=== PATIENT | male | born 1975 | race Caucasian/White ===

== ENCOUNTER 2017-07-26 15:41 | Inpatient (IN) | payer BC ==
[2017-07-26 19:22] VITALS: BMI 30.4
--- NOTE | 2017-07-26 19:30 | HP ---
CIWA Score - CIWA Score Nausea/Vomitin Muscle Tremors: 3 Anxiety: 2 Agitation: 1-Slight > Activity Paroxysmal Sweats: 2 Orientation: 1-Uncertain about Date Tacttile Disturbances: 0-None Auditory Disturbances: 0-None Visual Disturbances: 0-None Headache: 2-Mild CIWA-Ar Total Score: 13 Admission [facility] Chief Complaint: WITHDRAWAL SYMPTOMS Allergies/Adverse Reactions: Allergies Allergy/AdvReac Type Severity Reaction Status Date / Time No Known Allergies Allergy Verified 07/26/17 19:24 History of Present Illness: 42 Y.O. MAN WITH AN EXTENSIVE HISTORY OF ALCOHOL DEPENDENCE IS HERE SEEKING HIS FIRST ADMISSION TO DETOX. LONGEST PERIOD SOBER HAS BEEN 2 YEARS AND STATES HE RELAPSED ONE MONTH AGO. Exam Limitations: No Limitations - Ebola screening Have you traveled outside of the country in the last 21 days: No Have you had contact with anyone from an Ebola affected area: No Have you been sick,other than usual withdrawal symptoms: No - Review of Systems Constitutional: Chills, Night Sweats EENT: reports: No Symptoms Reported Respiratory: reports: No Symptoms reported Cardiac: reports: Palpitations GI: reports: No Symptoms Reported : reports: No Symptoms Reported Musculoskeletal: reports: No Symptoms Reported Integumentary: reports: No Symptoms Reported Neuro: reports: Tremors Endocrine: reports: No Symptoms Reported Hematology: reports: No Symptoms Reported Psychiatric: reports: Anxious, Depressed Other Systems: Reviewed and Negative Patient History - Patient Medical History Hx Anemia: No Hx Asthma: No Hx Chronic Obstructive Pulmonary Disease (COPD): No Hx Cancer: No Hx Cardiac Disorders: No Hx Congestive Heart Failure: No Hx Hypertension: No Hx Hypercholesterolemia: No Hx Pacemaker: No HX Cerebrovascular Accident: No Hx Seizures: No Hx Dementia: No Hx Diabetes: No Hx Gastrointestinal Disorders: No Hx Liver Disease: No Hx Genitourinary Disorders: No Hx Sexually Transmitted Disorders: No Hx Renal Disease (ESRD): No Hx Thyroid Disease: No Hx Human Immunodeficiency Virus (HIV): No Hx Hepatitis C: No Hx Depression: Yes (AND ANXIETY ) Hx Suicide Attempt: No Hx Bipolar Disorder: No Hx Schizophrenia: No - Patient Surgical History Past Surgical History: No - PPD History Previous Implant?: Yes Documented Results: Negative w/o proof PPD to be Administered?: Yes - Reproductive History Patient is a Female of Child Bearing Age (11 -55 yrs old): No - Smoking Cessation Smoking history: Former smoker Have you smoked in the past 12 months: No Initiated information on smoking cessation: No - Substance & Tx. History Hx Alcohol Use: Yes Hx Substance Use: No Substance Use Type: Alcohol Hx Substance Use Treatment: No - Substances Abused Alcohol Route: Oral Frequency: Daily Amount used: 2 6-PACKS OF BEER Age of first use: 16 Date of Last Use: 07/26/17 Family Disease History - Family Disease History Family History: Unremarkable Admission Physical Exam [facility] - Vital Signs Vital Signs: Vital Signs - 24 hr 07/26/17 19:17 Temperature 97.5 F L Pulse Rate 91 H Respiratory 18 Rate Blood Pressure 142/84 - Physical General Appearance: Yes: Sweating, Anxious HEENTM: Yes: Hearing grossly Normal, Normocephalic, Normal Voice Respiratory: Yes: Chest Non-Tender, Lungs Clear, Normal Breath Sounds, No Respiratory Distress, No Accessory Muscle Use Neck: Yes: No masses,lesions,Nodules, Trachea in good position Breast: Yes: Breast Exam Deferred Cardiology: Yes: Regular Rhythm, Regular Rate Abdominal: Yes: Normal Bowel Sounds, Non Tender, Flat Genitourinary: Yes: Other Back: Yes: Normal Inspection Musculoskeletal: Yes: full range of Motion, Gait Steady Extremities: Yes: Normal Capillary Refill, Normal Inspection, Normal Range of Motion, Non-Tender Neurological: Yes: Alert, Motor Strength 5/5, Normal Mood/Affect, Normal Response Integumentary: Yes: Normal Color, Dry, Warm Lymphatic: Yes: Within Normal Limits - Diagnostic (1) Alcohol dependence with uncomplicated withdrawal Current Visit: Yes Status: Acute Cleared for Admission [facility] - Detox or Rehab [facility] Level of Care: Medically Managed Detox Regimen/Protocol: Librium [facility] Breath Alcohol Content Breath Alcohol Content: 0.188 Urine Drug Screen - Results Drug Screen Negative: Yes
[2017-07-26] MEDS ORDERED: ACETAMINOPHEN 325 MG TABLET (FP) PO PRN (19:42)
[2017-07-26] MEDS ORDERED: MAG HYDROX/AL HYDROX/SIMETH 30 ML UNIT-DOSE CUP PO PRN (19:42)
[2017-07-26] MEDS ORDERED: MAGNESIUM HYDROX 2400MG/30ML ORAL SUSPENSION 30 ML CUP PO PRN (19:42)
[2017-07-26] MEDS ORDERED: IBUPROFEN 400 MG TABLET (FP) PO PRN (19:42)
[2017-07-26] MEDS ORDERED: MAGNESIUM CITRATE 300 ML BOTTLE PO PRN (19:42)
[2017-07-26] MEDS ORDERED: MENTHOL/PHENOL 1 EACH UD MM PRN (19:42)
[2017-07-26] MEDS ORDERED: P-EPHED 60MG/TRIPROLIDI 2.5MG TABLET PO PRN (19:42)
[2017-07-26] MEDS ORDERED: chlordiazePOXIDE HCL 25 MG CAPSULE PO PRN (19:42)
[2017-07-26] MEDS ORDERED: LOPERAMIDE HCL 2 MG CAPSULE PO PRN (19:42)
[2017-07-26] MEDS ORDERED: guaiFENesin/D-METHORPHAN HB 10 ML UNIT-DOSE CUPS PO PRN (19:42)
[2017-07-26] MEDS: THIAMINE HCL 100 MG TABLET (FP) PO SCH (21:19)
[2017-07-26] MEDS ORDERED: MELATONIN 5 MG TABLETS PO PRN (22:00)
[2017-07-26] MEDS: chlordiazePOXIDE HCL 25 MG CAPSULE PO SCH (22:10)
[2017-07-27] MEDS: hydrOXYzine PAMOATE 50 MG CAPSULE (FP) PO PRN (02:34)
[2017-07-27] MEDS: chlordiazePOXIDE HCL 25 MG CAPSULE PO SCH ×4 (05:38→22:46)
[2017-07-27] MEDS: PRENATAL VITAMINS W/ FOLIC ACID TABLET (FP) PO SCH (10:13)
[2017-07-27 10:16] LABS: HEMATOCRIT 42.6 % (35.4-49); HEMOGLOBIN 14.9 GM/dL (11.7-16.9); MCH 33.3 pg (25.7-33.7); MEAN CELL VOLUME 95.2 fl (80-96); MEAN PLT VOLUME 7.7 fl (7.5-11.1); PLATELET COUNT 185 K/MM3 (134-434); RBC 4.47 M/mm3 (4.00-5.60); RDW 16.2 % (11.9-15.9); WHITE BLOOD COUNT 5.2 K/mm3 (4.0-10.0)
[2017-07-27 10:27] LABS: ALBUMIN 4.7 g/dl (3.4-5.0); ANION GAP 10 (8-16); BLOOD UREA NITROGEN 10 mg/dL (7-18); CALCIUM 8.9 mg/dL (8.5-10.1); CHLORIDE 102 mmol/L (98-107); CO2 29 mmol/L (21-32); CREATININE 0.8 mg/dL (0.7-1.3); GLUCOSE,RANDOM 134 mg/dL (74-106); POTASSIUM 3.2 mmol/L (3.5-5.1); SGOT/AST 63 U/L (15-37); SGPT/ALT 44 U/L (12-78); SODIUM 141 mmol/L (136-145); TOT PROT 7.8 g/dl (6.4-8.2)
[2017-07-27 10:28] LABS: ALK PHOS 71 U/L (45-117)
[2017-07-27 10:52] LABS: URINE APPEARANCE CLEAR; URINE BILIRUBIN NEGATIVE (<2.0 mg/dL); URINE BLOOD NEGATIVE (NEGATIVE); URINE COLOR LTYELLOW; URINE GLUCOSE (UA) NEGATIVE (NEGATIVE); URINE KETONE NEGATIVE (NEGATIVE); URINE LEUK ESTERASE NEGATIVE (NEGATIVE); URINE NITRITE NEGATIVE (NEGATIVE); URINE PROTEIN NEGATIVE (NEGATIVE); URINE UROBILINOGEN NEGATIVE mg/dL (0.2-1.0)
--- NOTE | 2017-07-27 11:35 | EKG ---
Test Reason : Blood Pressure : / mmHG Vent. Rate : 078 BPM Atrial Rate : 078 BPM P-R Int : 182 ms QRS Dur : 090 ms QT Int : 372 ms P-R-T Axes : 051 035 028 degrees QTc Int : 424 ms NORMAL SINUS RHYTHM NORMAL ECG NO PREVIOUS ECGS AVAILABLE Confirmed by KIRK BAUER MD ([id number]) on 07/27/2017 11:35:36 AM Referred By: Confirmed By:KIRK BAUER MD
[2017-07-27] MEDS: LISINOPRIL 10 MG TABLET (FP) PO SCH (11:57)
--- NOTE | 2017-07-27 13:19 | PN ---
S CIWA - CIWA Score Nausea/Vomitin Muscle Tremors: 3 Anxiety: 4-Mod. Anxious/Guarded Agitation: 3 Paroxysmal Sweats: 3 Orientation: 0-Oriented Tacttile Disturbances: 2-Mild Itch/Numbness/Burn Auditory Disturbances: 0-None Visual Disturbances: 0-None Headache: 0-None Present CIWA-Ar Total Score: 18 [facility] Progress Note (SOAP) Subjective: Tremors, Interrupted Sleep, Sweating, Nausea. Objective: PATIENT A & O X 3, OBSERVED AMBULATING ON UNIT. NO ACUTE DISTRESS. 07/27/17 13:16 Vital Signs Temperature 97.8 F 07/27/17 09:45 Pulse Rate 90 07/27/17 12:00 Respiratory Rate 20 07/27/17 12:00 Blood Pressure 150/89 07/27/17 09:45 O2 Sat by Pulse Oximetry (%) Laboratory Tests 07/26/17 07/27/17 07/27/17 22:55 07:40 07:40 WBC 5.2 RBC 4.47 Hgb 14.9 Hct 42.6 MCV 95.2 MCH 33.3 MCHC 35.0 RDW 16.2 H Plt Count 185 MPV 7.7 Sodium Potassium Chloride Carbon Dioxide Anion Gap BUN Creatinine Creat Clearance w eGFR Random Glucose Calcium Total Bilirubin AST ALT Alkaline Phosphatase Total Protein Albumin Urine Color Ltyellow Urine Appearance Clear Urine pH 6.0 Ur Specific [place] 1.006 Urine Protein Negative Urine Glucose (UA) Negative Urine Ketones Negative Urine Blood Negative Urine Nitrite Negative Urine Bilirubin Negative Urine Urobilinogen Negative Ur Leukocyte Esterase Negative RPR Titer HIV 1&2 Antibody Screen Negative HIV P24 Antigen Negative 07/27/17 07/27/17 07:40 07:40 WBC RBC Hgb Hct MCV MCH MCHC RDW Plt Count MPV Sodium 141 Potassium 3.2 L Chloride 102 Carbon Dioxide 29 Anion Gap 10 BUN 10 Creatinine 0.8 Creat Clearance w eGFR > 60 Random Glucose 134 H Calcium 8.9 Total Bilirubin 1.0 AST 63 H ALT 44 Alkaline Phosphatase 71 Total Protein 7.8 Albumin 4.7 Urine Color Urine Appearance Urine pH Ur Specific [place] Urine Protein Urine Glucose (UA) Urine Ketones Urine Blood Urine Nitrite Urine Bilirubin Urine Urobilinogen Ur Leukocyte Esterase RPR Titer Nonreactive HIV 1&2 Antibody Screen HIV P24 Antigen LABS NOTED. Assessment: 07/27/17 13:16 WITHDRAWAL SYMPTOMS. HYPERTENSION. HYPOKALEMIA. 07/27/17 13:18 Plan: CONTINUE DETOX. K-DUR, 20 MEQ PO BID FOR HYPOKALEMIA. PATIENT REPORTS HISTORY OF TAKING LISINOPRIL FOR HTN. LISINOPRIL, 10 MG PO DAILY ORDERED FOR ELEVATED BP. INCREASE DAILY PO FLUID INTAKE.
[2017-07-27] MEDS ORDERED: POTASSIUM CHLORIDE TABS 20 MEQ TABLET.ER (FP) PO ONE (14:00)
--- NOTE | 2017-07-27 16:30 | CONSULT ---
[facility] Psychiatric Consult - Data Date of interview: 07/27/17 Admission source: [facility] Identifying data: First admission to [facility] for this 42 y/o [place]-born male seeking detox treatment on for alcohol dependence.Patient is ,a father of two,domiciled and currently employed. Substance Abuse History: Confirmed by patient in this session.Details in current [facility] reort : Smoking history: Former smoker. Have you smoked in the past 12 months: No. Initiated information on smoking cessation: No. - Substance & Tx. History. Hx Alcohol Use: Yes. Hx Substance Use: No. Substance Use Type: Alcohol. Hx Substance Use Treatment: No. - Substances Abused. Alcohol. Route: Oral. Frequency: Daily. Amount used: 2 6-PACKS OF BEER. Age of first use: 16. Date of Last Use: 07/26/17 Medical History: Hypertension as per self-report. Psychiatric History: Patient denies. Physical/Sexual Abuse/Trauma History: Patient denies. Additional Comment: Drug Screen is negative. Mental Status Exam - Mental Status Exam Alert and Oriented to: Time, Place, Person Cognitive Function: Good Patient Appearance: Well Groomed Mood: Nervous, Anxious, Apprehensive, Hopeful Affect: Mood Congruent Patient Behavior: Fatigued, Appropriate, Cooperative Speech Pattern: Clear (fluent in ethiopian) Voice Loudness: Normal Thought Process: Intact, Goal Oriented Thought Disorder: Not Present Hallucinations: Denies Suicidal Ideation: Denies Homicidal Ideation: Denies Insight/Judgement: Poor Sleep: Poorly, Difficulty falling asleep Appetite: Good Muscle strength/Tone: Normal Gait/Station: Normal Psychiatric Findings - Problem List ([place] 1, 2,3) (1) Alcohol dependence with uncomplicated withdrawal Current Visit: Yes Status: Acute (2) Insomnia Current Visit: Yes Status: Acute - Initial Treatment Plan Initial Treatment Plan: Psychoeducation.Detoxification.Sleep hygiene.Ambien 10 mg po hs prn (patient declined to resume trazodone).Patient is made giraldo of risk of parasomnias.Agrees with this careplan.Observation.
[2017-07-27] MEDS: POTASSIUM CHLORIDE TABS 20 MEQ TABLET.ER (FP) PO SCH (17:43)
[2017-07-27] MEDS: THIAMINE HCL 100 MG TABLET (FP) PO SCH (22:16)
[2017-07-27] MEDS: ZOLPIDEM TARTRATE 10 MG TABLET (PARK CARE ONLY) PO PRN (22:16)
[2017-07-28] MEDS: chlordiazePOXIDE HCL 25 MG CAPSULE PO SCH ×3 (05:18→18:06)
[2017-07-28] MEDS: hydrOXYzine PAMOATE 50 MG CAPSULE (FP) PO PRN (05:19)
[2017-07-28] MEDS: PRENATAL VITAMINS W/ FOLIC ACID TABLET (FP) PO SCH (10:07)
[2017-07-28] MEDS: POTASSIUM CHLORIDE TABS 20 MEQ TABLET.ER (FP) PO SCH ×2 (10:07→18:07)
[2017-07-28] MEDS: LISINOPRIL 10 MG TABLET (FP) PO SCH (10:08)
--- NOTE | 2017-07-28 14:13 | PN ---
[facility] CIWA - CIWA Score Nausea/Vomitin-No Nausea/No Vomiting Muscle Tremors: 3 Anxiety: 4-Mod. Anxious/Guarded Agitation: 2 Paroxysmal Sweats: 3 Orientation: 2-Disoriented Date<2 days Tacttile Disturbances: 2-Mild Itch/Numbness/Burn Auditory Disturbances: 0-None Visual Disturbances: 0-None Headache: 0-None Present CIWA-Ar Total Score: 16 [facility] Progress Note (SOAP) Subjective: Tremors, Interrupted Sleep, Body Aches, Sweating. Objective: PATIENT A & O X 2 (UNCERTAIN ABOUT CURRENT DAY / DATE). PATIENT OBSERVED AMBULATING ON UNIT. NO ACUTE DISTRESS. 07/28/17 14:10 Vital Signs Temperature 98.3 F 07/28/17 11:12 Pulse Rate 77 07/28/17 11:12 Respiratory Rate 18 07/28/17 11:12 Blood Pressure 117/73 07/28/17 11:12 O2 Sat by Pulse Oximetry (%) Laboratory Tests 07/26/17 07/27/17 07/27/17 22:55 07:40 07:40 WBC 5.2 RBC 4.47 Hgb 14.9 Hct 42.6 MCV 95.2 MCH 33.3 MCHC 35.0 RDW 16.2 H Plt Count 185 MPV 7.7 Sodium Potassium Chloride Carbon Dioxide Anion Gap BUN Creatinine Creat Clearance w eGFR Random Glucose Calcium Total Bilirubin AST ALT Alkaline Phosphatase Total Protein Albumin Urine Color Ltyellow Urine Appearance Clear Urine pH 6.0 Ur Specific [place] 1.006 Urine Protein Negative Urine Glucose (UA) Negative Urine Ketones Negative Urine Blood Negative Urine Nitrite Negative Urine Bilirubin Negative Urine Urobilinogen Negative Ur Leukocyte Esterase Negative RPR Titer HIV 1&2 Antibody Screen Negative HIV P24 Antigen Negative 07/27/17 07/27/17 07:40 07:40 WBC RBC Hgb Hct MCV MCH MCHC RDW Plt Count MPV Sodium 141 Potassium 3.2 L Chloride 102 Carbon Dioxide 29 Anion Gap 10 BUN 10 Creatinine 0.8 Creat Clearance w eGFR > 60 Random Glucose 134 H Calcium 8.9 Total Bilirubin 1.0 AST 63 H ALT 44 Alkaline Phosphatase 71 Total Protein 7.8 Albumin 4.7 Urine Color Urine Appearance Urine pH Ur Specific [place] Urine Protein Urine Glucose (UA) Urine Ketones Urine Blood Urine Nitrite Urine Bilirubin Urine Urobilinogen Ur Leukocyte Esterase RPR Titer Nonreactive HIV 1&2 Antibody Screen HIV P24 Antigen LABS NOTED. Assessment: 07/28/17 14:11 WITHDRAWAL SYMPTOMS. HYPOKALEMIA. 07/28/17 14:12 Plan: CONTINUE DETOX. INCREASE DAILY PO FLUID INTAKE. PRN FLEXERIL FOR BODY ACHES / MUSCLE SPASMS. CONTINUE K-DUR.
[2017-07-28] MEDS: CYCLOBENZAPRINE HCL 10 MG TABLET (FP) PO PRN (18:08)
[2017-07-28] MEDS: THIAMINE HCL 100 MG TABLET (FP) PO SCH (22:13)
[2017-07-28] MEDS: ZOLPIDEM TARTRATE 10 MG TABLET (PARK CARE ONLY) PO PRN (22:13)
[2017-07-28] MEDS: chlordiazePOXIDE 5 MG CAPSULE PO SCH (22:13)
--- NOTE | 2017-07-28 23:40 | PN ---
[facility] Progress Note Note: I was notified by Ms. Tran Tenorio RN that patient is PPD positive. Patient is asymptomatic. Temperature 98.0 F 07/28/17 22:10 Pulse Rate 74 07/28/17 22:10 Respiratory Rate 16 07/28/17 22:10 Blood Pressure 115/70 07/28/17 22:10 O2 Sat by Pulse Oximetry (%) Laboratory Last Values WBC 5.2 K/mm3 (4.0-10.0) 07/27/17 07:40 RBC 4.47 M/mm3 (4.00-5.60) 07/27/17 07:40 Hgb 14.9 GM/dL (11.7-16.9) 07/27/17 07:40 Hct 42.6 % (35.4-49) 07/27/17 07:40 MCV 95.2 fl (80-96) 07/27/17 07:40 MCH 33.3 pg (25.7-33.7) 07/27/17 07:40 MCHC 35.0 g/dl (32.0-35.9) 07/27/17 07:40 RDW 16.2 % (11.9-15.9) H 07/27/17 07:40 Plt Count 185 K/MM3 (134-434) 07/27/17 07:40 MPV 7.7 fl (7.5-11.1) 07/27/17 07:40 Sodium 141 mmol/L (136-145) 07/27/17 07:40 Potassium 3.2 mmol/L (3.5-5.1) L 07/27/17 07:40 Chloride 102 mmol/L (98-107) 07/27/17 07:40 Carbon Dioxide 29 mmol/L (21-32) 07/27/17 07:40 Anion Gap 10 (8-16) 07/27/17 07:40 BUN 10 mg/dL (7-18) 07/27/17 07:40 Creatinine 0.8 mg/dL (0.7-1.3) 07/27/17 07:40 Creat Clearance w eGFR > 60 (>60) 07/27/17 07:40 Random Glucose 134 mg/dL (74-106) H 07/27/17 07:40 Calcium 8.9 mg/dL (8.5-10.1) 07/27/17 07:40 Total Bilirubin 1.0 mg/dL (0.2-1.0) 07/27/17 07:40 AST 63 U/L (15-37) H 07/27/17 07:40 ALT 44 U/L (12-78) 07/27/17 07:40 Alkaline Phosphatase 71 U/L (45-117) 07/27/17 07:40 Total Protein 7.8 g/dl (6.4-8.2) 07/27/17 07:40 Albumin 4.7 g/dl (3.4-5.0) 07/27/17 07:40 Urine Color Ltyellow 07/26/17 22:55 Urine Appearance Clear 07/26/17 22:55 Urine pH 6.0 (5.0-8.0) 07/26/17 22:55 Ur Specific [place] 1.006 (1.001-1.035) 07/26/17 22:55 Urine Protein Negative (NEGATIVE) 07/26/17 22:55 Urine Glucose (UA) Negative (NEGATIVE) 07/26/17 22:55 Urine Ketones Negative (NEGATIVE) 07/26/17 22:55 Urine Blood Negative (NEGATIVE) 07/26/17 22:55 Urine Nitrite Negative (NEGATIVE) 07/26/17 22:55 Urine Bilirubin Negative (<2.0 mg/dL) 07/26/17 22:55 Urine Urobilinogen Negative mg/dL (0.2-1.0) 07/26/17 22:55 Ur Leukocyte Esterase Negative (NEGATIVE) 07/26/17 22:55 RPR Titer Nonreactive (NONREACTIVE) 07/27/17 07:40 HIV 1&2 Antibody Screen Negative 07/27/17 07:40 HIV P24 Antigen Negative 07/27/17 07:40 Action : Chest xray ordered. Potassium 20 mEq tablet oral BID in progress Safety precautions maintained
[2017-07-29] MEDS: chlordiazePOXIDE 5 MG CAPSULE PO SCH ×3 (05:24→17:43)
[2017-07-29] MEDS: POTASSIUM CHLORIDE TABS 20 MEQ TABLET.ER (FP) PO SCH ×2 (10:19→17:43)
[2017-07-29] MEDS: PRENATAL VITAMINS W/ FOLIC ACID TABLET (FP) PO SCH (10:19)
[2017-07-29] MEDS: LISINOPRIL 10 MG TABLET (FP) PO SCH (10:19)
--- NOTE | 2017-07-29 10:48 | PN ---
[facility] Progress Note (SOAP) Subjective: ANXIETY,FATIGUE. Objective: 07/29/17 10:48 Vital Signs Temperature 96.8 F L 07/29/17 09:08 Pulse Rate 74 07/29/17 09:08 Respiratory Rate 18 07/29/17 09:08 Blood Pressure 116/70 07/29/17 09:08 O2 Sat by Pulse Oximetry (%) Laboratory Last Values WBC 5.2 K/mm3 (4.0-10.0) 07/27/17 07:40 RBC 4.47 M/mm3 (4.00-5.60) 07/27/17 07:40 Hgb 14.9 GM/dL (11.7-16.9) 07/27/17 07:40 Hct 42.6 % (35.4-49) 07/27/17 07:40 MCV 95.2 fl (80-96) 07/27/17 07:40 MCH 33.3 pg (25.7-33.7) 07/27/17 07:40 MCHC 35.0 g/dl (32.0-35.9) 07/27/17 07:40 RDW 16.2 % (11.9-15.9) H 07/27/17 07:40 Plt Count 185 K/MM3 (134-434) 07/27/17 07:40 MPV 7.7 fl (7.5-11.1) 07/27/17 07:40 Sodium 141 mmol/L (136-145) 07/27/17 07:40 Potassium 3.2 mmol/L (3.5-5.1) L 07/27/17 07:40 Chloride 102 mmol/L (98-107) 07/27/17 07:40 Carbon Dioxide 29 mmol/L (21-32) 07/27/17 07:40 Anion Gap 10 (8-16) 07/27/17 07:40 BUN 10 mg/dL (7-18) 07/27/17 07:40 Creatinine 0.8 mg/dL (0.7-1.3) 07/27/17 07:40 Creat Clearance w eGFR > 60 (>60) 07/27/17 07:40 Random Glucose 134 mg/dL (74-106) H 07/27/17 07:40 Calcium 8.9 mg/dL (8.5-10.1) 07/27/17 07:40 Total Bilirubin 1.0 mg/dL (0.2-1.0) 07/27/17 07:40 AST 63 U/L (15-37) H 07/27/17 07:40 ALT 44 U/L (12-78) 07/27/17 07:40 Alkaline Phosphatase 71 U/L (45-117) 07/27/17 07:40 Total Protein 7.8 g/dl (6.4-8.2) 07/27/17 07:40 Albumin 4.7 g/dl (3.4-5.0) 07/27/17 07:40 Urine Color Ltyellow 07/26/17 22:55 Urine Appearance Clear 07/26/17 22:55 Urine pH 6.0 (5.0-8.0) 07/26/17 22:55 Ur Specific [place] 1.006 (1.001-1.035) 07/26/17 22:55 Urine Protein Negative (NEGATIVE) 07/26/17 22:55 Urine Glucose (UA) Negative (NEGATIVE) 07/26/17 22:55 Urine Ketones Negative (NEGATIVE) 07/26/17 22:55 Urine Blood Negative (NEGATIVE) 07/26/17 22:55 Urine Nitrite Negative (NEGATIVE) 07/26/17 22:55 Urine Bilirubin Negative (<2.0 mg/dL) 07/26/17 22:55 Urine Urobilinogen Negative mg/dL (0.2-1.0) 07/26/17 22:55 Ur Leukocyte Esterase Negative (NEGATIVE) 07/26/17 22:55 RPR Titer Nonreactive (NONREACTIVE) 07/27/17 07:40 HIV 1&2 Antibody Screen Negative 07/27/17 07:40 HIV P24 Antigen Negative 07/27/17 07:40 ON POTASSIUM SUPPLEMENT Assessment: 07/29/17 10:49 WITHDRAWAL SX Plan: CONTINUE DETOX
[2017-07-29] MEDS ORDERED: traZODone HCL 100 MG TABLET (FP) PO SCH (22:00)
[2017-07-29] MEDS: chlordiazePOXIDE HCL 10 MG CAPSULE PO SCH (22:14)
[2017-07-29] MEDS: THIAMINE HCL 100 MG TABLET (FP) PO SCH (22:14)
[2017-07-29] MEDS: ZOLPIDEM TARTRATE 10 MG TABLET (PARK CARE ONLY) PO PRN (22:14)
[2017-07-29] MEDS: CYCLOBENZAPRINE HCL 10 MG TABLET (FP) PO PRN (22:14)
[2017-07-30] MEDS: chlordiazePOXIDE HCL 10 MG CAPSULE PO SCH (05:40)
[2017-07-30 06:16] VITALS: BP 110/64; PULSE 51; TEMP 97.8
--- NOTE | 2017-07-30 09:04 | DS ---
[facility] Detox Discharge Summary Admission Date: 07/26/17 Discharge Date: 07/30/17 - History Present History: Alcohol Dependence Additional Comments: DETOX COMPLETED. ALERT O X 3. NAD. PT TO FOLLOW UP WITH HIS PMD DR DUNCAN SALINAS IN [place], [place] FOR MEDICAL MANAGEMENT NEEDED. Pertinent Past History: PLEASE SEE DX BELOW - Physical Exam Results Vital Signs: Vital Signs Temperature 97.8 F 07/30/17 06:16 Pulse Rate 51 L 07/30/17 06:16 Respiratory Rate 18 07/30/17 06:16 Blood Pressure 110/64 07/30/17 06:16 O2 Sat by Pulse Oximetry (%) Pertinent Admission Physical Exam Findings: WITHDRAWAL SX Laboratory Tests 07/26/17 07/27/17 07/27/17 22:55 07:40 07:40 WBC 5.2 RBC 4.47 Hgb 14.9 Hct 42.6 MCV 95.2 MCH 33.3 MCHC 35.0 RDW 16.2 H Plt Count 185 MPV 7.7 Sodium Potassium Chloride Carbon Dioxide Anion Gap BUN Creatinine Creat Clearance w eGFR Random Glucose Calcium Total Bilirubin AST ALT Alkaline Phosphatase Total Protein Albumin Urine Color Ltyellow Urine Appearance Clear Urine pH 6.0 Ur Specific [place] 1.006 Urine Protein Negative Urine Glucose (UA) Negative Urine Ketones Negative Urine Blood Negative Urine Nitrite Negative Urine Bilirubin Negative Urine Urobilinogen Negative Ur Leukocyte Esterase Negative RPR Titer HIV 1&2 Antibody Screen Negative HIV P24 Antigen Negative 07/27/17 07/27/17 07:40 07:40 WBC RBC Hgb Hct MCV MCH MCHC RDW Plt Count MPV Sodium 141 Potassium 3.2 L Chloride 102 Carbon Dioxide 29 Anion Gap 10 BUN 10 Creatinine 0.8 Creat Clearance w eGFR > 60 Random Glucose 134 H Calcium 8.9 Total Bilirubin 1.0 AST 63 H ALT 44 Alkaline Phosphatase 71 Total Protein 7.8 Albumin 4.7 Urine Color Urine Appearance Urine pH Ur Specific [place] Urine Protein Urine Glucose (UA) Urine Ketones Urine Blood Urine Nitrite Urine Bilirubin Urine Urobilinogen Ur Leukocyte Esterase RPR Titer Nonreactive HIV 1&2 Antibody Screen HIV P24 Antigen - Treatment Hospital Course: Detox Protocol Followed, Detoxed Safely, Responded well, Discharged Condition Good - Medication Discharge Medications: Ambulatory Orders Bupropion HCl [Wellbutrin -] 100 mg PO DAILY 07/26/17 Hydroxyzine HCl 25 mg PO DAILY 07/26/17 Trazodone HCl 100 mg PO HS 07/26/17 Zolpidem Tartrate [Ambien] 10 mg PO HS 07/26/17 - Diagnosis (1) Alcohol dependence with uncomplicated withdrawal Current Visit: Yes Status: Acute (2) Hypertension Current Visit: Yes Status: Chronic Qualifiers: Hypertension type: essential hypertension Qualified Code(s): I10 - Essential (primary) hypertension (3) Hypokalemia Current Visit: Yes Status: Acute (4) Insomnia Current Visit: Yes Status: Acute Qualifiers: Insomnia type: unspecified Qualified Code(s): G47.00 - Insomnia, unspecified - AMA Did Patient Leave Against Medical Advice: No
--- NOTE | 2017-07-30 09:06 | PN ---
S Progress Note (SOAP) Subjective: DETOX TX COMPLETED. ALERT O X 3. PT REPORTS HE HAS A PMD, "DR SALINAS IN [place] [place] [facility] PT STATES HE WAS ON VIVITROL [place] AND MIGHT BE GOING BACK TO THE TREATMENT WITH HIS DOCTOR. Objective: 07/30/17 10:09 Vital Signs Temperature 97.8 F 07/30/17 06:16 Pulse Rate 51 L 07/30/17 06:16 Respiratory Rate 18 07/30/17 06:16 Blood Pressure 110/64 07/30/17 06:16 O2 Sat by Pulse Oximetry (%) Laboratory Last Values WBC 5.2 K/mm3 (4.0-10.0) 07/27/17 07:40 RBC 4.47 M/mm3 (4.00-5.60) 07/27/17 07:40 Hgb 14.9 GM/dL (11.7-16.9) 07/27/17 07:40 Hct 42.6 % (35.4-49) 07/27/17 07:40 MCV 95.2 fl (80-96) 07/27/17 07:40 MCH 33.3 pg (25.7-33.7) 07/27/17 07:40 MCHC 35.0 g/dl (32.0-35.9) 07/27/17 07:40 RDW 16.2 % (11.9-15.9) H 07/27/17 07:40 Plt Count 185 K/MM3 (134-434) 07/27/17 07:40 MPV 7.7 fl (7.5-11.1) 07/27/17 07:40 Sodium 141 mmol/L (136-145) 07/27/17 07:40 Potassium 3.2 mmol/L (3.5-5.1) L 07/27/17 07:40 Chloride 102 mmol/L (98-107) 07/27/17 07:40 Carbon Dioxide 29 mmol/L (21-32) 07/27/17 07:40 Anion Gap 10 (8-16) 07/27/17 07:40 BUN 10 mg/dL (7-18) 07/27/17 07:40 Creatinine 0.8 mg/dL (0.7-1.3) 07/27/17 07:40 Creat Clearance w eGFR > 60 (>60) 07/27/17 07:40 Random Glucose 134 mg/dL (74-106) H 07/27/17 07:40 Calcium 8.9 mg/dL (8.5-10.1) 07/27/17 07:40 Total Bilirubin 1.0 mg/dL (0.2-1.0) 07/27/17 07:40 AST 63 U/L (15-37) H 07/27/17 07:40 ALT 44 U/L (12-78) 07/27/17 07:40 Alkaline Phosphatase 71 U/L (45-117) 07/27/17 07:40 Total Protein 7.8 g/dl (6.4-8.2) 07/27/17 07:40 Albumin 4.7 g/dl (3.4-5.0) 07/27/17 07:40 Urine Color Ltyellow 07/26/17 22:55 Urine Appearance Clear 07/26/17 22:55 Urine pH 6.0 (5.0-8.0) 07/26/17 22:55 Ur Specific [place] 1.006 (1.001-1.035) 07/26/17 22:55 Urine Protein Negative (NEGATIVE) 07/26/17 22:55 Urine Glucose (UA) Negative (NEGATIVE) 07/26/17 22:55 Urine Ketones Negative (NEGATIVE) 07/26/17 22:55 Urine Blood Negative (NEGATIVE) 07/26/17 22:55 Urine Nitrite Negative (NEGATIVE) 07/26/17 22:55 Urine Bilirubin Negative (<2.0 mg/dL) 07/26/17 22:55 Urine Urobilinogen Negative mg/dL (0.2-1.0) 07/26/17 22:55 Ur Leukocyte Esterase Negative (NEGATIVE) 07/26/17 22:55 RPR Titer Nonreactive (NONREACTIVE) 07/27/17 07:40 HIV 1&2 Antibody Screen Negative 07/27/17 07:40 HIV P24 Antigen Negative 07/27/17 07:40 CHEST XRAY NEGATIVE RE: REACTIVE PPD TEST. COPY GIVEN TO PATIENT. Assessment: 07/30/17 10:11 MEDICALLY STABLE Plan: D/C PT TODAY.
--- NOTE | 2017-07-31 18:07 | PN ---
[facility] Progress Note Note: Psychiatry Attending's note : Patient called for scripts for ambien and trazodone. Mr Cuellar did receive these medications on . Wants scripts to be sent to [facility] in [place]. At [address] [facility] [address] [facility] [address] ([phone]). Side effects/benefits of both drugs were discussed with the patient. During hospital course.Mr Cuellar had agreed to take the medications. With full knowledge of risk of priapism (trazodone) + sleep-walking (ambien). Patient tolerated the medications well.NO occurrence of adverse events. Script sent for trazodone 100 mg po hs (30 tab/100 mg).
== END 2017-07-30 09:36 | disposition home or self-care (01) | DRG 897 ==
LOC: YASAS 15:41 → Y3N 19:34
PROVIDERS: ADMIT Internal Medicine; ATTEND Internal Medicine
PROC: HZ2ZZZZ Detoxification Services for Substance Abuse Treatment (ICD-10-PCS; principal; 2017-07-26)
DX: F10.230 Alcohol dependence with withdrawal, uncomplicated (principal); I10 Essential (primary) hypertension; E87.6 Hypokalemia; G47.00 Insomnia, unspecified; Z87.891 Personal history of nicotine dependence
CPT/HCPCS: 36415; 71046-TC-FY; 80053; 81003; 85027; 86593; 87389; 93005; 93010

== ENCOUNTER 2017-12-28 13:05 | Inpatient (IN) | payer BC ==
[2017-12-28 14:46] VITALS: BMI 31.4
--- NOTE | 2017-12-28 15:03 | HP ---
CIWA Score - CIWA Score Nausea/Vomitin Muscle Tremors: 2 Anxiety: 2 Agitation: 2 Paroxysmal Sweats: 1-Minimal Palms Moist Orientation: 0-Oriented Tacttile Disturbances: 1-Very Mild Itch/Numbness Auditory Disturbances: 1-Very Mild Visual Disturbances: 0-None Headache: 2-Mild CIWA-Ar Total Score: 14 Admission ROS BHS - HPI Chief Complaint: i need help to stop drinking alcohol Allergies/Adverse Reactions: Allergies Allergy/AdvReac Type Severity Reaction Status Date / Time No Known Allergies Allergy Verified 12/28/17 15:24 History of Present Illness: this 42 years old male with alcohol dependence seeking detox,last detox [facility] to 07/30/17 anxiety,depression,insomnia longest period odf sobriety 2 years had previous detox admission before Exam Limitations: No Limitations - Ebola screening Have you traveled outside of the country in the last 21 days: No (N) Have you had contact with anyone from an Ebola affected area: No Have you been sick,other than usual withdrawal symptoms: No Do you have a fever: No - Review of Systems Constitutional: Loss of Appetite, Malaise, Night Sweats, Changes in sleep, Weakness EENT: reports: Nose Congestion Respiratory: reports: No Symptoms reported Cardiac: reports: No Symptoms Reported GI: reports: Diarrhea, Nausea, Poor Appetite, Vomiting, Abdominal cramping : reports: No Symptoms Reported Musculoskeletal: reports: Back Pain, Muscle Pain Integumentary: reports: Dryness Neuro: reports: Headache, Tremors Endocrine: reports: No Symptoms Reported Hematology: reports: No Symptoms Reported Psychiatric: reports: No Sypmtoms Reported (insomnia), Mood/Affect Appropiate, Orientated x3, Anxious, Depressed Patient History - Patient Medical History Hx Anemia: No Hx Asthma: No Hx Chronic Obstructive Pulmonary Disease (COPD): No Hx Cancer: No Hx Cardiac Disorders: No Hx Congestive Heart Failure: No Hx Hypertension: Yes (no med) Hx Hypercholesterolemia: No Hx Pacemaker: No HX Cerebrovascular Accident: No Hx Seizures: No Hx Dementia: No Hx Diabetes: No Hx Gastrointestinal Disorders: No Hx Liver Disease: No Hx Genitourinary Disorders: No Hx Sexually Transmitted Disorders: No Hx Renal Disease (ESRD): No Hx Thyroid Disease: No Hx Human Immunodeficiency Virus (HIV): No Hx Hepatitis C: No Hx Depression: Yes (AND ANXIETY ) Hx Suicide Attempt: No Hx Bipolar Disorder: No Hx Schizophrenia: No - Patient Surgical History Past Surgical History: No Hx Neurologic Surgery: No Hx Cataract Extraction: No Hx Cardiac Surgery: No Hx Lung Surgery: No Hx Breast Surgery: No Hx Breast Biopsy: No Hx Abdominal Surgery: No Hx Appendectomy: No Hx Cholecystectomy: No Hx Genitourinary Surgery: No Hx Section: No Hx Orthopedic Surgery: No Anesthesia Reaction: No - PPD History Previous Implant?: Yes Documented Results: Positive w/proof Date: 07/28/17 Results: pos over 15mm PPD to be Administered?: No - Smoking Cessation Smoking history: Never smoked Have you smoked in the past 12 months: No Hx Chewing Tobacco Use: No - Substance & Tx. History Hx Alcohol Use: Yes Hx Substance Use: No Substance Use Type: Alcohol Hx Substance Use Treatment: Yes ([facility] 07/26/17 to 07/30/17) - Substances Abused Alcohol Route: Oral Frequency: Daily Amount used: 2 of 6packs of 12 ozs of beer Age of first use: 14 Date of Last Use: 12/28/17 Family Disease History - Family Disease History Family History: Denies Admission Physical Exam S - Vital Signs Vital Signs: Vital Signs - 24 hr 12/28/17 14:44 Temperature 97.6 F Pulse Rate 72 Respiratory 19 Rate Blood Pressure 144/69 - Physical General Appearance: Yes: Moderate Distress, Tremorous, Irritable, Sweating, Anxious HEENTM: Yes: Normal ENT Inspection, JOSE, Pharynx Normal Respiratory: Yes: Lungs Clear, Normal Breath Sounds, No Respiratory Distress Neck: Yes: Within Normal Limits, No masses,lesions,Nodules, Supple, Trachea in good position Breast: Yes: Within Normal Limits Cardiology: Yes: Within Normal Limits, Regular Rhythm, Regular Rate, S1, S2 Abdominal: Yes: Within Normal Limits, Normal Bowel Sounds, Non Tender, Soft Genitourinary: Yes: Within Normal Limits Back: Yes: Muscle Spasm Musculoskeletal: Yes: Back pain, Muscle Pain Extremities: Yes: Tremors Neurological: Yes: nurse navigator II-XII NML intact, Fully Oriented, Alert, Motor Strength 5/5 Integumentary: Yes: Dry Lymphatic: Yes: Within Normal Limits - Diagnostic (1) Alcohol dependence with uncomplicated withdrawal Current Visit: No Status: Acute (2) Insomnia Current Visit: No Status: Acute Qualifiers: Insomnia type: unspecified Qualified Code(s): G47.00 - Insomnia, unspecified (3) Hypertension Current Visit: No Status: Chronic Qualifiers: Hypertension type: essential hypertension Qualified Code(s): I10 - Essential (primary) hypertension (4) Anxiety and depression Current Visit: Yes Status: Acute Cleared for Admission [facility] - Detox or Rehab [facility] Level of Care: Medically Managed Detox Regimen/Protocol: Librium [facility] Breath Alcohol Content Breath Alcohol Content: 0.138 Urine Drug Screen - Results Drug Screen Negative: Yes
[2017-12-28] MEDS ORDERED: LOPERAMIDE HCL 2 MG CAPSULE PO PRN (15:15)
[2017-12-28] MEDS ORDERED: IBUPROFEN 400 MG TABLET (FP) PO PRN (15:15)
[2017-12-28] MEDS ORDERED: hydrOXYzine PAMOATE 25 MG CAPSULE (FP) PO PRN (15:15)
[2017-12-28] MEDS ORDERED: guaiFENesin/D-METHORPHAN HB 10 ML UNIT-DOSE CUPS PO PRN (15:15)
[2017-12-28] MEDS ORDERED: ACETAMINOPHEN 325 MG TABLET (FP) PO PRN (15:15)
[2017-12-28] MEDS ORDERED: P-EPHED 60MG/TRIPROLIDI 2.5MG TABLET PO PRN (15:15)
[2017-12-28] MEDS ORDERED: MENTHOL/PHENOL 1 EACH UD MM PRN (15:15)
[2017-12-28] MEDS ORDERED: chlordiazePOXIDE HCL 25 MG CAPSULE PO PRN (15:15)
[2017-12-28] MEDS ORDERED: MAGNESIUM HYDROX 2400MG/30ML ORAL SUSPENSION 30 ML CUP PO PRN (15:15)
[2017-12-28] MEDS ORDERED: MAGNESIUM CITRATE 300 ML BOTTLE PO PRN (15:15)
[2017-12-28] MEDS ORDERED: MAG HYDROX/AL HYDROX/SIMETH 30 ML UNIT-DOSE CUP PO PRN (15:15)
[2017-12-28] MEDS: chlordiazePOXIDE HCL 25 MG CAPSULE PO SCH ×2 (17:58→22:16)
[2017-12-28] MEDS ORDERED: MELATONIN 5 MG TABLETS PO PRN (22:00)
[2017-12-28] MEDS: THIAMINE HCL 100 MG TABLET (FP) PO SCH (22:16)
[2017-12-29] MEDS: chlordiazePOXIDE HCL 25 MG CAPSULE PO SCH ×4 (05:47→22:10)
--- NOTE | 2017-12-29 09:08 | CONSULT ---
[facility] Psychiatric Consult - Data Date of interview: 12/29/17 Admission source: [facility] Identifying data: Patient is a 42 y/o male , employed domiciled, father of 2. This is his 2nd Detox admisson to [facility] for ETOH use disorder Substance Abuse History: Patient has a long history of ETOH use over 2 decades and has been drinking more than usual/ He is seeking Detox treatment. he denies black out spells, denies witdrawl symptoms or seizure disorder. Drink beer daily. Refer to addiction counselor summary for more detailed alcohol history Medical History: Patient reports a history of HTN not on medication at this time , past treatment with Lisonopril Psychiatric History: He has no prior psychiatric hospitalization or treatment, he suffered from insomnia, trouble initiating or staying as sleep. He denies feeling sad, depressed but experiences occaional anxiety symptoms at times. Denies suicidal or homicidal ideation Physical/Sexual Abuse/Trauma History: Denied Mental Status Exam - Mental Status Exam Alert and Oriented to: Time, Place, Person Cognitive Function: Grossly Intact Patient Appearance: Well Groomed Mood: Anxious Affect: Appropriate Patient Behavior: Cooperative Speech Pattern: Clear Voice Loudness: Normal Thought Process: Intact Thought Disorder: Not Present Hallucinations: None Suicidal Ideation: None Homicidal Ideation: None Insight/Judgement: Poor Sleep: Difficulty falling asleep Appetite: Good Muscle strength/Tone: Normal Gait/Station: Normal Psychiatric Findings - Problem List ([place] 1, 2,3) (1) Alcohol dependence with uncomplicated withdrawal Current Visit: No Status: Acute (2) Insomnia Current Visit: No Status: Acute Qualifiers: Insomnia type: unspecified Qualified Code(s): G47.00 - Insomnia, unspecified (3) Hypertension Current Visit: No Status: Chronic Qualifiers: Hypertension type: essential hypertension Qualified Code(s): I10 - Essential (primary) hypertension - Initial Treatment Plan Initial Treatment Plan: Continue Detox treatment. Psychoeducation. Monitor progress. Ambien 10 mg po q hs prn
[2017-12-29] MEDS: PRENATAL VITAMINS W/ FOLIC ACID TABLET (FP) PO SCH (10:22)
[2017-12-29 11:12] LABS: HEMATOCRIT 45.5 % (35.4-49); MCH 30.9 pg (25.7-33.7); MEAN CELL VOLUME 93.6 fl (80-96); MEAN PLT VOLUME 8.2 fl (7.5-11.1); PLATELET COUNT 207 K/MM3 (134-434); RBC 4.86 M/mm3 (4.00-5.60); RDW 14.5 % (11.9-15.9); WHITE BLOOD COUNT 6.2 K/mm3 (4.0-10.0)
[2017-12-29 11:25] LABS: ALBUMIN 4.1 g/dl (3.4-5.0); ALK PHOS 56 U/L (45-117); ANION GAP 5 MMOL/L (8-16); BILIRUBIN,TOTAL 1.2 mg/dL (0.2-1); BLOOD UREA NITROGEN 13 mg/dL (7-18); CALCIUM 9.1 mg/dL (8.5-10.1); CHLORIDE 103 mmol/L (98-107); CO2 30 mmol/L (21-32); CREATININE 0.8 mg/dL (0.55-1.3); GLUCOSE,RANDOM 80 mg/dL (74-106); POTASSIUM 3.6 mmol/L (3.5-5.1); SGOT/AST 25 U/L (15-37); SGPT/ALT 40 U/L (13-61); SODIUM 137 mmol/L (136-145); TOT PROT 7.3 g/dl (6.4-8.2)
--- NOTE | 2017-12-29 14:58 | PN ---
[facility] CIWA - CIWA Score Nausea/Vomitin-Mild Nausea/No Vomiting Muscle Tremors: 4-Moderate,w/Arms Extend Anxiety: 4-Mod. Anxious/Guarded Agitation: 4-Moderately Restless Paroxysmal Sweats: 3 Orientation: 0-Oriented Tacttile Disturbances: 0-None Auditory Disturbances: 0-None Visual Disturbances: 0-None Headache: 1-Very Mild CIWA-Ar Total Score: 17 [facility] Progress Note (SOAP) Subjective: Interrupted sleep, dizziness, tremor, chills, sweating Objective: 12/29/17 14:57 Last Vital Signs Temp Pulse Resp BP Pulse Ox 96.0 F L 58 L 18 140/86 12/29/17 14:39 12/29/17 14:39 12/29/17 14:39 12/29/17 14:39 Laboratory Tests 12/29/17 12/29/17 12/29/17 07:49 07:49 07:49 WBC 6.2 RBC 4.86 Hgb 15.0 Hct 45.5 MCV 93.6 MCH 30.9 MCHC 33.0 RDW 14.5 D Plt Count 207 MPV 8.2 Sodium 137 Potassium 3.6 Chloride 103 Carbon Dioxide 30 Anion Gap 5 L BUN 13 Creatinine 0.8 Creat Clearance w eGFR > 60 Random Glucose 80 Calcium 9.1 Total Bilirubin 1.2 H AST 25 ALT 40 Alkaline Phosphatase 56 Total Protein 7.3 Albumin 4.1 RPR Titer Nonreactive Labs reviewed: CBC and CMP nonsignificant result; follow up on UA Assessment: 12/29/17 14:57 Withdrawal sx Plan: Continue detox
[2017-12-29] MEDS: THIAMINE HCL 100 MG TABLET (FP) PO SCH (22:10)
[2017-12-29] MEDS: ZOLPIDEM TARTRATE 5 MG TABLET PO PRN (22:10)
[2017-12-30] MEDS: chlordiazePOXIDE HCL 25 MG CAPSULE PO SCH ×2 (06:00→10:14)
[2017-12-30] MEDS: PRENATAL VITAMINS W/ FOLIC ACID TABLET (FP) PO SCH (10:14)
--- NOTE | 2017-12-30 16:46 | PN ---
[facility] CIWA - CIWA Score Nausea/Vomitin Muscle Tremors: 3 Anxiety: 3 Agitation: 3 Paroxysmal Sweats: 3 Orientation: 0-Oriented Tacttile Disturbances: 1-Very Mild Itch/Numbness Auditory Disturbances: 0-None Visual Disturbances: 0-None Headache: 0-None Present CIWA-Ar Total Score: 15 [facility] Progress Note (SOAP) Subjective: SLEEP DISTURBANCE SHAKES Objective: 12/30/17 16:43 A & O X 3 Vital Signs Temperature 98.6 F 12/30/17 13:25 Pulse Rate 60 12/30/17 13:25 Respiratory Rate 18 12/30/17 13:25 Blood Pressure 119/74 12/30/17 13:25 O2 Sat by Pulse Oximetry (%) Laboratory Last Values WBC 6.2 K/mm3 (4.0-10.0) 12/29/17 07:49 RBC 4.86 M/mm3 (4.00-5.60) 12/29/17 07:49 Hgb 15.0 GM/dL (11.7-16.9) 12/29/17 07:49 Hct 45.5 % (35.4-49) 12/29/17 07:49 MCV 93.6 fl (80-96) 12/29/17 07:49 MCH 30.9 pg (25.7-33.7) 12/29/17 07:49 MCHC 33.0 g/dl (32.0-35.9) 12/29/17 07:49 RDW 14.5 % (11.9-15.9) D 12/29/17 07:49 Plt Count 207 K/MM3 (134-434) 12/29/17 07:49 MPV 8.2 fl (7.5-11.1) 12/29/17 07:49 Sodium 137 mmol/L (136-145) 12/29/17 07:49 Potassium 3.6 mmol/L (3.5-5.1) 12/29/17 07:49 Chloride 103 mmol/L (98-107) 12/29/17 07:49 Carbon Dioxide 30 mmol/L (21-32) 12/29/17 07:49 Anion Gap 5 MMOL/L (8-16) L 12/29/17 07:49 BUN 13 mg/dL (7-18) 12/29/17 07:49 Creatinine 0.8 mg/dL (0.55-1.3) 12/29/17 07:49 Creat Clearance w eGFR > 60 (>60) 12/29/17 07:49 Random Glucose 80 mg/dL (74-106) 12/29/17 07:49 Calcium 9.1 mg/dL (8.5-10.1) 12/29/17 07:49 Total Bilirubin 1.2 mg/dL (0.2-1) H 12/29/17 07:49 AST 25 U/L (15-37) 12/29/17 07:49 ALT 40 U/L (13-61) 12/29/17 07:49 Alkaline Phosphatase 56 U/L (45-117) 12/29/17 07:49 Total Protein 7.3 g/dl (6.4-8.2) 12/29/17 07:49 Albumin 4.1 g/dl (3.4-5.0) 12/29/17 07:49 RPR Titer Nonreactive (NONREACTIVE) 12/29/17 07:49 LABS NOTED, UA PENDING Assessment: 12/30/17 16:44 WITHDRAWAL SX Plan: CONTINUE DETOX
[2017-12-30] MEDS: chlordiazePOXIDE 5 MG CAPSULE PO SCH ×2 (17:27→22:16)
--- NOTE | 2017-12-30 17:50 | PN ---
[facility] Progress Note Note: Psychiatry Attending's note : Approached by patient in the consultation office. Complaint : refractory insomnia. Request : addition of trazodone to zolpidem. Mr Esvin reports favorable results on that regimen. Admits that these medications are well tolerated. Patient appears to a good and reliable historian. Chart reviewed. Dr Luke's consult note (12/29/17) : appreciated. Intervention : Principles of sleep hygiene are discussed with the patient. Medication reconciliation list : revisited. Trazodone 50 mg po hs. Ordered. Patient is made aware of the risk of priapism. Agrees to this plan of care. Will follow.
[2017-12-30 18:01] LABS: URINE APPEARANCE CLEAR; URINE BILIRUBIN NEGATIVE (<2.0 mg/dL); URINE COLOR LTYELLOW; URINE GLUCOSE (UA) NEGATIVE (NEGATIVE); URINE KETONE NEGATIVE (NEGATIVE); URINE LEUK ESTERASE NEGATIVE (NEGATIVE); URINE NITRITE NEGATIVE (NEGATIVE); URINE PROTEIN NEGATIVE (NEGATIVE); URINE UROBILINOGEN NEGATIVE mg/dL (0.2-1.0)
[2017-12-30] MEDS ORDERED: traZODone HCL 50 MG TABLET (FP) PO SCH (22:00)
[2017-12-30] MEDS: ZOLPIDEM TARTRATE 5 MG TABLET PO PRN (22:16)
[2017-12-30] MEDS: THIAMINE HCL 100 MG TABLET (FP) PO SCH (22:16)
[2017-12-31] MEDS: chlordiazePOXIDE 5 MG CAPSULE PO SCH ×2 (05:13→10:07)
[2017-12-31] MEDS: PRENATAL VITAMINS W/ FOLIC ACID TABLET (FP) PO SCH (10:07)
--- NOTE | 2017-12-31 11:09 | EKG ---
Test Reason : Blood Pressure : / mmHG Vent. Rate : 086 BPM Atrial Rate : 086 BPM P-R Int : 186 ms QRS Dur : 072 ms QT Int : 366 ms P-R-T Axes : 069 042 042 degrees QTc Int : 437 ms NORMAL SINUS RHYTHM LOW VOLTAGE QRS BORDERLINE ECG WHEN COMPARED WITH ECG OF 26-JUL-2017 21:29, NO SIGNIFICANT CHANGE WAS FOUND Confirmed by Dimitris Cruz MD ([id number]) on 12/31/2017 11:09:27 AM Referred By: Confirmed By:Dimitris Cruz MD
--- NOTE | 2017-12-31 11:31 | PN ---
[facility] Progress Note (SOAP) Subjective: PATIENT CURRENTLY IN DETOX FOR ETOH DEPENDENCE. REPORTS HAVING MILD SHAKES AND ANXIETY Objective: 12/31/17 11:28 ALERT AND ORIENTED AMB AB SAVI SKIN WARM AND DRY EXT FULL ROM, MILD TREMORS PSYCH MILDLY ANXIOUS ABOUT RETURNING TO WORK 12/31/17 11:30 Assessment: 12/31/17 11:29 ETOH WITHDRAWAL SYNDROME Plan: CONTINUE DETOX ENCOURAGE ORAL FLUIDS CONTINUE TO MONITOR CLINICALLY
[2017-12-31] MEDS: chlordiazePOXIDE HCL 10 MG CAPSULE PO SCH ×2 (17:40→22:10)
[2017-12-31] MEDS ORDERED: traZODone HCL 100 MG TABLET (FP) PO SCH (22:00)
[2017-12-31] MEDS: ZOLPIDEM TARTRATE 5 MG TABLET PO PRN (22:10)
[2017-12-31] MEDS: THIAMINE HCL 100 MG TABLET (FP) PO SCH (22:10)
[2018-01-01] MEDS: chlordiazePOXIDE HCL 10 MG CAPSULE PO SCH (05:08)
[2018-01-01 06:28] VITALS: BP 118/75; PULSE 69; TEMP 97.9
--- NOTE | 2018-01-01 11:00 | DS ---
[facility] Detox Discharge Summary Admission Date: 12/28/17 Discharge Date: 01/01/18 - History Present History: Alcohol Dependence - Physical Exam Results Vital Signs: Vital Signs Temperature 97.9 F 01/01/18 06:27 Pulse Rate 69 01/01/18 06:27 Respiratory Rate 18 01/01/18 06:27 Blood Pressure 118/75 01/01/18 06:27 O2 Sat by Pulse Oximetry (%) Pertinent Admission Physical Exam Findings: PATIENT TOLERATED DETOX WELL. MEDICALLY STABLE. DENIES SI/HI. IN NAD. ALERT AND ORIENTED X 3. AMBULATORY AD SAVI. SKIN WARM AND DRY. PATIENT TO FOLLOW UP WITH OUTPATIENT SUBSTANCE ABUSE COUNSELOR PROVIDED BY HIS EMPLOYMENT ([employer]). PATIENT ENCOURAGED TO GO TO ER IF WITHDRAWAL SYMPTOMS OCCUR AND TO ATTEND GROUP MEETINGS TO PREVENT RELAPSE. - Treatment Hospital Course: Detox Protocol Followed, Detoxed Safely, Responded well, Discharged Condition Good - Medication Discharge Medications: Ambulatory Orders Zolpidem Tartrate [Ambien] 10 mg PO HS 07/26/17 traZODone HCL [Trazodone HCl] 100 mg PO HS #30 tablet 07/31/17 - Diagnosis (1) Alcohol dependence with uncomplicated withdrawal Status: Acute - AMA Did Patient Leave Against Medical Advice: No
== END 2018-01-01 09:34 | disposition home or self-care (01) | DRG 897 ==
LOC: YASAS 13:05 → Y3N 15:30
PROC: HZ2ZZZZ Detoxification Services for Substance Abuse Treatment (ICD-10-PCS; principal; 2017-12-28)
DX: F10.230 Alcohol dependence with withdrawal, uncomplicated (principal); F41.8 Other specified anxiety disorders; I10 Essential (primary) hypertension; G47.00 Insomnia, unspecified; R76.11 Nonspecific reaction to tuberculin skin test without active tuberculosis
CPT/HCPCS: 36415; 80053; 81003; 85027; 86593; 93005; 93010

== ENCOUNTER 2018-12-22 23:14 | Inpatient (IN) | payer BC ==
[2018-12-22 23:41] VITALS: BMI 33.6
--- NOTE | 2018-12-23 00:13 | HP ---
CIWA Score Nausea/Vomitin Muscle Tremors: 1-None Visible, but [place] Anxiety: 4-Mod. Anxious/Guarded Agitation: 4-Moderately Restless Paroxysmal Sweats: 4-Forehead w/Sweat Beads Orientation: 0-Oriented Tacttile Disturbances: 0-None Auditory Disturbances: 2-Mild Harshness/Frighten Visual Disturbances: 0-None Headache: 0-None Present CIWA-Ar Total Score: 18 - Admission Criteria [facility] Guidelines: Admission for Medically Managed Detox: Requires at least one of the followin. CIWA greater than 12 2. Seizures within the past 24 hours 3. Delirium tremens within the past 24 hours 4. Hallucinations within the past 24 hours 5. Acute intervention needed for co occurring medical disorder 6. Acute intervention needed for co occurring psychiatric disorder 7. Severe withdrawal that cannot be handled at a lower level of care (continued vomiting, continued diarrhea, abnormal vital signs) requiring intravenous medication and/or fluids 8. Admission ROS S - HPI Allergies/Adverse Reactions: Allergies Allergy/AdvReac Type Severity Reaction Status Date / Time No Known Allergies Allergy Verified 12/22/18 23:41 History of Present Illness: pt here requesting detox from etoh use , reports 2 x 6 -pk /day , reports relapse 3 weeks ago , starts drinking in the mornings to stop withdrawal symptoms , latest use today , current symptoms as above . 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 Exam Limitations: Clinical Condition, Intoxication - Ebola screening Have you traveled outside of the country in the last 21 days: No Have you had contact with anyone from an Ebola affected area: No - Review of Systems Constitutional: No Symptoms Reported EENT: reports: Other (glasses - myopia) Respiratory: reports: No Symptoms reported Cardiac: reports: No Symptoms Reported GI: reports: No Symptoms Reported : reports: No Symptoms Reported Musculoskeletal: reports: No Symptoms Reported Integumentary: reports: No Symptoms Reported Neuro: reports: No Symptoms reported Endocrine: reports: No Symptoms Reported Psychiatric: reports: Orientated x3, Agitated, Anxious Patient History - Patient Medical History Hx Anemia: No Hx Asthma: No Hx Chronic Obstructive Pulmonary Disease (COPD): No Hx Cancer: No Hx Cardiac Disorders: No Hx Congestive Heart Failure: No Hx Hypertension: Yes (no med) Hx Hypercholesterolemia: No Hx Pacemaker: No HX Cerebrovascular Accident: No Hx Seizures: No Hx Dementia: No Hx Diabetes: No Hx Gastrointestinal Disorders: No Hx Liver Disease: No Hx Genitourinary Disorders: No Hx Sexually Transmitted Disorders: No Hx Renal Disease (ESRD): No Hx Thyroid Disease: No Hx Human Immunodeficiency Virus (HIV): No Hx Hepatitis C: No Hx Depression: Yes (AND ANXIETY ) Hx Suicide Attempt: No Hx Bipolar Disorder: No Hx Schizophrenia: No - Patient Surgical History Past Surgical History: No Hx Neurologic Surgery: No Hx Cataract Extraction: No Hx Cardiac Surgery: No Hx Lung Surgery: No Hx Breast Surgery: No Hx Breast Biopsy: No Hx Abdominal Surgery: No Hx Appendectomy: No Hx Cholecystectomy: No Hx Genitourinary Surgery: No Hx Section: No Hx Orthopedic Surgery: No Anesthesia Reaction: No - PPD History Date: 07/28/17 Results: pos over 15mm - Smoking Cessation Smoking history: Never smoked Have you smoked in the past 12 months: No Hx Chewing Tobacco Use: No - Substances abused Alcohol Substance route: Oral Frequency: Daily Amount used: 12 (12oz beers) Age of first use: 17 Date of last use: 12/22/18 Admission Physical Exam S - Vital Signs Vital Signs: Vital Signs - 24 hr 12/22/18 23:35 Temperature 97.5 F L Pulse Rate 74 Respiratory 16 Rate Blood Pressure 145/90 - Physical General Appearance: Yes: Moderate Distress, Intoxicated, Sweating, Anxious HEENTM: Yes: EOMI, Hearing grossly Normal, Normocephalic, Normal Voice Respiratory: Yes: Chest Non-Tender, Lungs Clear, Normal Breath Sounds, No Respiratory Distress, No Accessory Muscle Use Neck: Yes: No masses,lesions,Nodules, Trachea in good position Cardiology: Yes: Regular Rhythm, Regular Rate, S1, S2 Abdominal: Yes: Non Tender, Soft Musculoskeletal: Yes: Gait Steady Extremities: Yes: Normal Range of Motion, Non-Tender Neurological: Yes: Fully Oriented, Alert, Motor Strength 5/5, Depressed Affect Integumentary: Yes: Warm - Diagnostic (1) Alcohol intoxication Current Visit: Yes Status: Acute Qualifiers: Complication of substance-induced condition: uncomplicated Qualified Code(s ): F10.920 - Alcohol use, unspecified with intoxication, uncomplicated (2) Alcohol use disorder Current Visit: Yes Status: Acute Breathalyzer - Breathalyzer Breathalyzer: 0.187 Urine Drug Screen - Test Device Lot number: [id number] Expiration date: 08/29/20 - Control Is test valid?: Yes - Results Drug screen NEGATIVE: No Urine drug screen results: [facility]-C[facility] Inpatient Rehab Admission - Rehab Decision to Admit Inpatient rehab admission?: No
[2018-12-23] MEDS ORDERED: ACETAMINOPHEN 325 MG TABLET (FP) PO PRN ×2 (00:21)
[2018-12-23] MEDS ORDERED: IBUPROFEN 400 MG TABLET (FP) PO PRN (00:21)
[2018-12-23] MEDS ORDERED: MENTHOL/PHENOL 1 EACH UD MM PRN (00:21)
[2018-12-23] MEDS ORDERED: BISMUTH SUBSALICYLATE 524 MG/30 ML UD PO PRN (00:21)
[2018-12-23] MEDS ORDERED: MAG HYDROX/AL HYDROX/SIMETH 30 ML UNIT-DOSE CUP PO PRN (00:21)
[2018-12-23] MEDS ORDERED: MAGNESIUM HYDROX 2400MG/30ML ORAL SUSPENSION 30 ML CUP PO PRN (00:21)
[2018-12-23] MEDS ORDERED: MAGNESIUM CITRATE 300 ML BOTTLE PO PRN (00:21)
[2018-12-23] MEDS ORDERED: chlordiazePOXIDE HCL 25 MG CAPSULE PO PRN (00:22)
[2018-12-23] MEDS ORDERED: chlordiazePOXIDE HCL 25 MG CAPSULE PO ONE (00:22)
[2018-12-23] MEDS: chlordiazePOXIDE HCL 25 MG CAPSULE PO SCH ×4 (05:36→22:07)
[2018-12-23] MEDS: PRENATAL VITAMINS W/ FOLIC ACID TABLET (FP) PO SCH (10:55)
--- NOTE | 2018-12-23 13:09 | CONSULT ---
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 Refer to addiction counselor's summary for further information Medical History: Significant for hypertension and PPD+ Psychiatric History: Denies history of previous psychiatric treament. However, reports suffering from insomnia and he is prescribed Ambien 10 mg/hs by his primary care physician. Denies previous psychiatric hospitalization or suicidal attempt. At present, reports feeling depressed, anxious and sleeping poorly Physical/Sexual Abuse/Trauma History: Denies history of emotional, physical or sexual abuse as well as DV relationship Additional Comment: Denies criminal history Mental Status Exam - Mental Status Exam Alert and Oriented to: Time, Place, Person Cognitive Function: Fair Patient Appearance: Well Groomed Mood: Depressed, Anxious Patient Behavior: Cooperative Speech Pattern: Clear Voice Loudness: Moderately Soft/Quiet Thought Process: Intact, Goal Oriented Hallucinations: Denies Suicidal Ideation: Denies Homicidal Ideation: Denies Insight/Judgement: Fair Sleep: Poorly Appetite: Good Muscle strength/Tone: Normal Gait/Station: Normal Psychiatric Findings - Problem List ([place] 1, 2,3) (1) Alcohol-induced mood disorder Current Visit: Yes Status: Acute (2) Alcohol-induced sleep disorder Current Visit: Yes Status: Acute (3) Alcohol dependence with uncomplicated withdrawal Current Visit: No Status: Resolved (4) Hypertension Current Visit: No Status: Chronic Qualifiers: Hypertension type: essential hypertension Qualified Code(s): I10 - Essential (primary) hypertension (5) PPD positive Current Visit: No Status: Chronic - Initial Treatment Plan Initial Treatment Plan: 1) Start Belsomra 10 mg po HS prn for insomnia. 2) Continue inpatient detoxification
--- NOTE | 2018-12-23 16:30 | PN ---
[facility] CIWA - CIWA Score Nausea/Vomitin-No Nausea/No Vomiting Muscle Tremors: 3 Anxiety: 3 Agitation: 3 Paroxysmal Sweats: 2 (Chills, Hot / Cold Sensations.) Orientation: 0-Oriented Tacttile Disturbances: 2-Mild Itch/Numbness/Burn Auditory Disturbances: 0-None Visual Disturbances: 0-None Headache: 0-None Present CIWA-Ar Total Score: 13 [facility] Progress Note (SOAP) Subjective: Chills, Hot / Cold Sensations, Anxious, Tremors. Objective: PATIENT A & O X 3, OBSERVED AMBULATING ON DETOX UNIT UNASSISTED. IN NO ACUTE DISTRESS. 12/23/18 16:29 Vital Signs Temperature 98.2 F 12/23/18 13:41 Pulse Rate 70 12/23/18 13:41 Respiratory Rate 18 12/23/18 13:41 Blood Pressure 152/89 12/23/18 13:41 O2 Sat by Pulse Oximetry (%) DETOX ADMISSION LAB RESULTS PENDING. 12/23/18 16:29 Assessment: 12/23/18 16:30 WITHDRAWAL SYMPTOMS. HYPERTENSION. 12/23/18 16:30 Plan: CONTINUE DETOX. CONTINUE TO MONITOR BLOOD PRESSURE - INTERMITTENTLY ELEVATED (PATIENT REPORTED HISTORY OF HTN ON DETOX ADMISSION HISTORY AND PHYSICAL ASSESSMENT; HOWEVER, HE DENIED CURRENT PRESCRIBED MEDICATION FOR THE HYPERTENSION).
[2018-12-23] MEDS: METHOCARBAMOL 500 MG TABLET PO PRN (22:07)
[2018-12-23] MEDS: THIAMINE HCL 100 MG TABLET (FP) PO SCH (22:07)
[2018-12-24] MEDS: chlordiazePOXIDE HCL 25 MG CAPSULE PO SCH ×4 (06:36→22:06)
[2018-12-24] MEDS: METHOCARBAMOL 500 MG TABLET PO PRN ×3 (06:40→17:28)
[2018-12-24] MEDS: PRENATAL VITAMINS W/ FOLIC ACID TABLET (FP) PO SCH (10:12)
[2018-12-24] MEDS: hydrOXYzine PAMOATE 25 MG CAPSULE (FP) PO PRN ×2 (10:13→22:08)
[2018-12-24 11:14] LABS: ALBUMIN 3.7 g/dl (3.4-5.0); BILIRUBIN,TOTAL 0.9 mg/dL (0.2-1); CALCIUM 8.5 mg/dL (8.5-10.1); CREATININE 0.7 mg/dL (0.55-1.3); POTASSIUM 3.7 mmol/L (3.5-5.1); TOT PROT 6.4 g/dl (6.4-8.2)
[2018-12-24 11:22] LABS: HEMATOCRIT 43.8 % (35.4-49); HEMOGLOBIN 14.8 GM/dL (11.7-16.9); MCH 30.7 pg (25.7-33.7); MCHC 33.9 g/dl (32.0-35.9); MEAN CELL VOLUME 90.6 fl (80-96); MEAN PLT VOLUME 8.5 fl (7.5-11.1); PLATELET COUNT 173 K/MM3 (134-434); RBC 4.83 M/mm3 (4.00-5.60); RDW 13.8 % (11.9-15.9); WHITE BLOOD COUNT 5.2 K/mm3 (4.0-10.0)
--- NOTE | 2018-12-24 11:44 | PN ---
[facility] CIWA - CIWA Score Nausea/Vomitin-Mild Nausea/No Vomiting Muscle Tremors: 1-None Visible, but [place] Anxiety: 2 Agitation: 2 Paroxysmal Sweats: No Perspiration Orientation: 0-Oriented Tacttile Disturbances: 1-Very Mild Itch/Numbness Auditory Disturbances: 0-None Visual Disturbances: 0-None Headache: 1-Very Mild CIWA-Ar Total Score: 8 [facility] Progress Note (SOAP) Subjective: alert,irritable,anxious,interrupted sleep,pain in the body Objective: 12/24/18 11:42 Vital Signs Temperature 98.6 F 12/24/18 08:55 Pulse Rate 58 L 12/24/18 08:55 Respiratory Rate 18 12/24/18 08:55 Blood Pressure 151/75 12/24/18 08:55 O2 Sat by Pulse Oximetry (%) Assessment: 12/24/18 11:42 withdrawal symptom Plan: continue detox librium regime,bp monitoring
[2018-12-24] MEDS: THIAMINE HCL 100 MG TABLET (FP) PO SCH (22:06)
[2018-12-24] MEDS: MELATONIN 5 MG TABLETS PO PRN (22:06)
[2018-12-25] MEDS ORDERED: chlordiazePOXIDE HCL 10 MG CAPSULE PO PRN
[2018-12-25] MEDS: chlordiazePOXIDE HCL 10 MG CAPSULE PO SCH ×4 (06:02→22:09)
[2018-12-25] MEDS: METHOCARBAMOL 500 MG TABLET PO PRN ×2 (07:04→17:13)
[2018-12-25] MEDS: PRENATAL VITAMINS W/ FOLIC ACID TABLET (FP) PO SCH (10:20)
--- NOTE | 2018-12-25 13:11 | PN ---
[facility] CIWA - CIWA Score Nausea/Vomitin-Mild Nausea/No Vomiting Muscle Tremors: 1-None Visible, but [place] Anxiety: 2 Agitation: 2 Paroxysmal Sweats: No Perspiration Orientation: 0-Oriented Tacttile Disturbances: 1-Very Mild Itch/Numbness Auditory Disturbances: 0-None Visual Disturbances: 0-None Headache: 1-Very Mild CIWA-Ar Total Score: 8 [facility] Progress Note (SOAP) Subjective: alert,irritable,anxious,interrupted sleep, Objective: 12/25/18 13:10 Vital Signs Temperature 97.7 F 12/25/18 09:37 Pulse Rate 54 L 12/25/18 09:37 Respiratory Rate 18 12/25/18 09:37 Blood Pressure 144/89 12/25/18 09:37 O2 Sat by Pulse Oximetry (%) Assessment: 12/25/18 13:10 withdrawal symptom Plan: continue detox librium regimen
[2018-12-25] MEDS ORDERED: SUVOREXANT 10 MG TABLET PO PRN (22:00)
[2018-12-25] MEDS: THIAMINE HCL 100 MG TABLET (FP) PO SCH (22:09)
[2018-12-26] MEDS: chlordiazePOXIDE HCL 10 MG CAPSULE PO SCH ×2 (05:58→17:23)
[2018-12-26] MEDS: PRENATAL VITAMINS W/ FOLIC ACID TABLET (FP) PO SCH (09:26)
--- NOTE | 2018-12-26 11:05 | PN ---
S Progress Note Note: Patient reports sleeping poorly despite taking Belsomra 10 mg/hs. Will increase medication dosage to 15 mg/hs
--- NOTE | 2018-12-26 15:42 | PN ---
[facility] CIWA - CIWA Score Nausea/Vomitin-No Nausea/No Vomiting Muscle Tremors: 1-None Visible, but [place] Anxiety: 1-Mildly Anxious Agitation: 0-Normal Activity Paroxysmal Sweats: 2 Orientation: 0-Oriented Tacttile Disturbances: 1-Very Mild Itch/Numbness Auditory Disturbances: 0-None Visual Disturbances: 1-Very Mild Sensitivity Headache: 1-Very Mild CIWA-Ar Total Score: 7 S Progress Note (SOAP) Subjective: c/o interrupted sleep, chills, fatigue Objective: 12/26/18 15:41 Vital Signs Temperature 97.0 F L 12/26/18 12:41 Pulse Rate 68 12/26/18 12:41 Respiratory Rate 18 12/26/18 12:41 Blood Pressure 143/87 12/26/18 12:41 O2 Sat by Pulse Oximetry (%) Laboratory Last Values WBC 5.2 K/mm3 (4.0-10.0) 12/24/18 07:45 RBC 4.83 M/mm3 (4.00-5.60) 12/24/18 07:45 Hgb 14.8 GM/dL (11.7-16.9) 12/24/18 07:45 Hct 43.8 % (35.4-49) 12/24/18 07:45 MCV 90.6 fl (80-96) 12/24/18 07:45 MCH 30.7 pg (25.7-33.7) 12/24/18 07:45 MCHC 33.9 g/dl (32.0-35.9) 12/24/18 07:45 RDW 13.8 % (11.9-15.9) 12/24/18 07:45 Plt Count 173 K/MM3 (134-434) 12/24/18 07:45 MPV 8.5 fl (7.5-11.1) 12/24/18 07:45 Sodium 140 mmol/L (136-145) 12/24/18 07:45 Potassium 3.7 mmol/L (3.5-5.1) 12/24/18 07:45 Chloride 105 mmol/L (98-107) 12/24/18 07:45 Carbon Dioxide 29 mmol/L (21-32) 12/24/18 07:45 Anion Gap 6 MMOL/L (8-16) L 12/24/18 07:45 BUN 9.0 mg/dL (7-18) 12/24/18 07:45 Creatinine 0.7 mg/dL (0.55-1.3) 12/24/18 07:45 Est GFR (CKD-EPI)AfAm 133.02 12/24/18 07:45 Est GFR (CKD-EPI)NonAf 114.77 12/24/18 07:45 Random Glucose 90 mg/dL (74-106) 12/24/18 07:45 Calcium 8.5 mg/dL (8.5-10.1) 12/24/18 07:45 Total Bilirubin 0.9 mg/dL (0.2-1) 12/24/18 07:45 AST 53 U/L (15-37) H 12/24/18 07:45 ALT 61 U/L (13-61) 12/24/18 07:45 Alkaline Phosphatase 79 U/L (45-117) 12/24/18 07:45 Total Protein 6.4 g/dl (6.4-8.2) 12/24/18 07:45 Albumin 3.7 g/dl (3.4-5.0) 12/24/18 07:45 RPR Titer Nonreactive (NONREACTIVE) 12/24/18 07:45 Assessment: 12/26/18 15:41 Aox3 no acute distress no adventitious breath sounds full ROM no gait disturbance ambulating in the unit withdrawal sx Plan: continue detox increase PO fluids d/c in AM continue to monitor
[2018-12-26] MEDS: hydrOXYzine PAMOATE 25 MG CAPSULE (FP) PO PRN (21:42)
[2018-12-26] MEDS: THIAMINE HCL 100 MG TABLET (FP) PO SCH (21:42)
[2018-12-26] MEDS: MELATONIN 5 MG TABLETS PO PRN (21:42)
[2018-12-26] MEDS: METHOCARBAMOL 500 MG TABLET PO PRN (21:42)
[2018-12-26] MEDS ORDERED: SUVOREXANT 15 MG TABLET PO PRN (22:00)
[2018-12-27] MEDS ORDERED: chlordiazePOXIDE HCL 10 MG CAPSULE PO ONE (05:00)
[2018-12-27 07:33] VITALS: BP 100/60; PULSE 50; TEMP 97.7
--- NOTE | 2018-12-27 12:18 | DS ---
[facility] Detox Discharge Summary Admission Date: 12/23/18 Discharge Date: 12/27/18 - History Present History: Alcohol Dependence Additional Comments: Pt is medically cleared and discharged today. Pt completed his detox protocol. Pt is encouraged to follow-up with [facility] outpatient program and also to follow-up with his pmd. Pt verbalized understanding of information given. Pt is alert and oriented x3 and in no acute respiratory distress. Pertinent Past History: H/O HTN and alcohol use disorder. - Physical Exam Results Vital Signs: Vital Signs Temperature 97.7 F 12/27/18 07:33 Pulse Rate 50 L 12/27/18 07:33 Respiratory Rate 18 12/27/18 07:33 Blood Pressure 100/60 12/27/18 07:33 O2 Sat by Pulse Oximetry (%) Vital Signs 12/27/18 07:33 Temperature 97.7 F Pulse Rate 50 L Respiratory 18 Rate Blood Pressure 100/60 Laboratory Last Values WBC 5.2 K/mm3 (4.0-10.0) 12/24/18 07:45 RBC 4.83 M/mm3 (4.00-5.60) 12/24/18 07:45 Hgb 14.8 GM/dL (11.7-16.9) 12/24/18 07:45 Hct 43.8 % (35.4-49) 12/24/18 07:45 MCV 90.6 fl (80-96) 12/24/18 07:45 MCH 30.7 pg (25.7-33.7) 12/24/18 07:45 MCHC 33.9 g/dl (32.0-35.9) 12/24/18 07:45 RDW 13.8 % (11.9-15.9) 12/24/18 07:45 Plt Count 173 K/MM3 (134-434) 12/24/18 07:45 MPV 8.5 fl (7.5-11.1) 12/24/18 07:45 Sodium 140 mmol/L (136-145) 12/24/18 07:45 Potassium 3.7 mmol/L (3.5-5.1) 12/24/18 07:45 Chloride 105 mmol/L (98-107) 12/24/18 07:45 Carbon Dioxide 29 mmol/L (21-32) 12/24/18 07:45 Anion Gap 6 MMOL/L (8-16) L 12/24/18 07:45 BUN 9.0 mg/dL (7-18) 12/24/18 07:45 Creatinine 0.7 mg/dL (0.55-1.3) 12/24/18 07:45 Est GFR (CKD-EPI)AfAm 133.02 12/24/18 07:45 Est GFR (CKD-EPI)NonAf 114.77 12/24/18 07:45 Random Glucose 90 mg/dL (74-106) 12/24/18 07:45 Calcium 8.5 mg/dL (8.5-10.1) 12/24/18 07:45 Total Bilirubin 0.9 mg/dL (0.2-1) 12/24/18 07:45 AST 53 U/L (15-37) H 12/24/18 07:45 ALT 61 U/L (13-61) 12/24/18 07:45 Alkaline Phosphatase 79 U/L (45-117) 12/24/18 07:45 Total Protein 6.4 g/dl (6.4-8.2) 12/24/18 07:45 Albumin 3.7 g/dl (3.4-5.0) 12/24/18 07:45 RPR Titer Nonreactive (NONREACTIVE) 12/24/18 07:45 Labs noted. Pertinent Admission Physical Exam Findings: Withdrawal symptoms. - Treatment Hospital Course: Detox Protocol Followed, Detoxed Safely, Responded well, Discharged Condition Good - Medication Discharge Medications: Ambulatory Orders Zolpidem Tartrate [Ambien] 10 mg PO HS 07/26/17 traZODone HCL [Trazodone HCl] 100 mg PO HS #30 tablet 07/31/17 - Diagnosis (1) Alcohol intoxication Status: Acute Qualifiers: Complication of substance-induced condition: uncomplicated Qualified Code(s ): F10.920 - Alcohol use, unspecified with intoxication, uncomplicated (2) Hypertension Status: Chronic Qualifiers: Hypertension type: essential hypertension Qualified Code(s): I10 - Essential (primary) hypertension (3) PPD positive Status: Chronic - AMA Did Patient Leave Against Medical Advice: No [facility] CIWA - CIWA Score Nausea/Vomitin-No Nausea/No Vomiting Muscle Tremors: None Anxiety: 2 Agitation: 0-Normal Activity Paroxysmal Sweats: 1-Minimal Palms Moist Orientation: 0-Oriented Tacttile Disturbances: 0-None Auditory Disturbances: 0-None Visual Disturbances: 0-None Headache: 0-None Present CIWA-Ar Total Score: 3
== END 2018-12-27 09:15 | disposition home or self-care (01) | DRG 897 ==
LOC: YASAS 23:14 → Y6N 12-23 00:54
PROVIDERS: ADMIT Surgery; ATTEND Surgery
PROC: HZ2ZZZZ Detoxification Services for Substance Abuse Treatment (ICD-10-PCS; principal; 2018-12-23)
DX: F10.230 Alcohol dependence with withdrawal, uncomplicated (principal); F10.220 Alcohol dependence with intoxication, uncomplicated; F10.24 Alcohol dependence with alcohol-induced mood disorder; F10.282 Alcohol dependence with alcohol-induced sleep disorder; I10 Essential (primary) hypertension; R76.11 Nonspecific reaction to tuberculin skin test without active tuberculosis
CPT/HCPCS: 36415; 80053; 85027; 86593

== ENCOUNTER 2019-01-09 23:26 | Inpatient (IN) | payer BC ==
[2019-01-09 23:43] VITALS: BMI 34.0
--- NOTE | 2019-01-10 00:27 | HP ---
CIWA Score Nausea/Vomitin Muscle Tremors: 4-Moderate,w/Arms Extend Anxiety: 3 Agitation: 1-Slight > Activity Paroxysmal Sweats: 3 Orientation: 1-Uncertain about Date Tacttile Disturbances: 0-None Auditory Disturbances: 0-None Visual Disturbances: 0-None Headache: 4-Moderately Severe CIWA-Ar Total Score: 19 - Admission Criteria OASAS Guidelines: Admission for Medically Managed Detox: Requires at least one of the followin. CIWA greater than 12 2. Seizures within the past 24 hours 3. Delirium tremens within the past 24 hours 4. Hallucinations within the past 24 hours 5. Acute intervention needed for co occurring medical disorder 6. Acute intervention needed for co occurring psychiatric disorder 7. Severe withdrawal that cannot be handled at a lower level of care (continued vomiting, continued diarrhea, abnormal vital signs) requiring intravenous medication and/or fluids 8. Admitting History and Physical - Smoking History Smoking history: Never smoked Have you smoked in the past 12 months: No - Alcohol/Substance Use Hx Alcohol Use: Yes Admission ROS [facility] Chief Complaint: Alcohol withdrawal symptoms Allergies/Adverse Reactions: Allergies Allergy/AdvReac Type Severity Reaction Status Date / Time No Known Allergies Allergy Verified 01/09/19 23:32 History of Present Illness: 43 years old male with a long history of dependence is seeking admission to detox. Patient was in detox for the period - 12/27/2018 and reports that he relapsed because of family problems. He has history of hypertension and depression . He denies suicidal ideation at this time. His ROEL is .298. Exam Limitations: No Limitations - Ebola screening Have you traveled outside of the country in the last 21 days: No Have you had contact with anyone from an Ebola affected area: No - Review of Systems Constitutional: Chills, Malaise, Night Sweats, Changes in sleep EENT: reports: Nose Congestion Respiratory: reports: No Symptoms reported Cardiac: reports: No Symptoms Reported GI: reports: Poor Appetite, Poor Fluid Intake, Abdominal cramping : reports: No Symptoms Reported Musculoskeletal: reports: Back Pain, Muscle Pain Integumentary: reports: Dryness, Flushing Neuro: reports: Tremors Endocrine: reports: No Symptoms Reported Hematology: reports: No Symptoms Reported Psychiatric: reports: Anxious, Depressed Other Systems: Reviewed and Negative Patient History - Patient Medical History Hx Anemia: No Hx Asthma: No Hx Chronic Obstructive Pulmonary Disease (COPD): No Hx Cancer: No Hx Cardiac Disorders: No Hx Congestive Heart Failure: No Hx Hypertension: Yes (not on medication) Hx Hypercholesterolemia: No Hx Pacemaker: No HX Cerebrovascular Accident: No Hx Seizures: No Hx Dementia: No Hx Diabetes: No Hx Gastrointestinal Disorders: No Hx Liver Disease: No Hx Genitourinary Disorders: No Hx Sexually Transmitted Disorders: No Hx Renal Disease (ESRD): No Hx Thyroid Disease: No Hx Human Immunodeficiency Virus (HIV): No Hx Hepatitis C: No Hx Depression: Yes (Not on medication) Hx Suicide Attempt: No Hx Bipolar Disorder: No Hx Schizophrenia: No Other Medical History: ANXIETY - not on medication - Patient Surgical History Past Surgical History: No Hx Neurologic Surgery: No Hx Cataract Extraction: No Hx Cardiac Surgery: No Hx Lung Surgery: No Hx Abdominal Surgery: No Hx Appendectomy: No Hx Cholecystectomy: No Hx Genitourinary Surgery: No Hx Orthopedic Surgery: No Anesthesia Reaction: No - PPD History Date: 07/28/17 Results: pos over 15mm PPD to be Administered?: No - Reproductive History Patient is a Female of Child Bearing Age (11 -55 yrs old): No (male) - Smoking Cessation Smoking history: Never smoked Have you smoked in the past 12 months: No Hx Chewing Tobacco Use: No Initiated information on smoking cessation: No - Substance & Tx. History Hx Alcohol Use: Yes Hx Substance Use: Yes Substance Use Type: Alcohol, Cocaine Hx Substance Use Treatment: Yes ([facility]) - Substances abused Alcohol Substance route: Oral Frequency: Daily Amount used: 12 packs of beer Age of first use: 17 Date of last use: 01/09/19 Admission Physical Exam S - Vital Signs Vital Signs: Vital Signs - 24 hr 01/09/19 23:35 Temperature 98.4 F Pulse Rate 70 Respiratory 16 Rate Blood Pressure 176/96 H - Physical General Appearance: Yes: Moderate Distress, Tremorous, Irritable, Sweating, Anxious HEENTM: Yes: Within Normal Limits, Normocephalic, Normal Voice, JOSE Respiratory: Yes: Lungs Clear, Normal Breath Sounds, No Respiratory Distress Neck: Yes: Supple Breast: Yes: Breast Exam Deferred Cardiology: Yes: Regular Rhythm, Regular Rate Abdominal: Yes: Normal Bowel Sounds, Soft Genitourinary: Yes: Within Normal Limits Back: Yes: Normal Inspection Musculoskeletal: Yes: Back pain, Muscle Pain Extremities: Yes: Tremors Neurological: Yes: Within Normal Limits, Alert Integumentary: Yes: Warm Lymphatic: Yes: Within Normal Limits - Diagnostic (1) Opioid dependence with withdrawal Current Visit: Yes Status: Acute (2) Depression Current Visit: Yes Status: Chronic Qualifiers: Depression Type: unspecified Qualified Code(s): F32.9 - Major depressive disorder, single episode, unspecified (3) Anxiety Current Visit: Yes Status: Chronic (4) Hypertension Current Visit: Yes Status: Chronic Qualifiers: Hypertension type: essential hypertension Qualified Code(s): I10 - Essential (primary) hypertension (5) PPD positive Current Visit: No Status: Chronic Cleared for Admission S - Detox or Rehab [facility] Level of Care: Medically Managed Detox Regimen/Protocol: Librium Breathalyzer - Breathalyzer Breathalyzer: 0.298 Urine Drug Screen - Test Device Lot number: [id number] Expiration date: 08/29/20 - Control Is test valid?: Yes - Results Drug screen NEGATIVE: No Urine drug screen results: NASIM-Cocaine, BZO-Benzodiazepines Inpatient Rehab Admission - Rehab Decision to Admit Inpatient rehab admission?: No
[2019-01-10] MEDS ORDERED: MENTHOL/PHENOL 1 EACH UD MM PRN (00:40)
[2019-01-10] MEDS ORDERED: MAGNESIUM CITRATE 300 ML BOTTLE PO PRN (00:40)
[2019-01-10] MEDS ORDERED: BISMUTH SUBSALICYLATE 524 MG/30 ML UD PO PRN (00:40)
[2019-01-10] MEDS ORDERED: MAG HYDROX/AL HYDROX/SIMETH 30 ML UNIT-DOSE CUP PO PRN (00:40)
[2019-01-10] MEDS ORDERED: ACETAMINOPHEN 325 MG TABLET (FP) PO PRN ×2 (00:40)
[2019-01-10] MEDS ORDERED: MAGNESIUM HYDROX 2400MG/30ML ORAL SUSPENSION 30 ML CUP PO PRN (00:40)
[2019-01-10] MEDS: chlordiazePOXIDE HCL 25 MG CAPSULE PO PRN ×2 (01:43→13:40)
[2019-01-10] MEDS: chlordiazePOXIDE HCL 25 MG CAPSULE PO SCH ×4 (05:20→22:22)
[2019-01-10] MEDS: PRENATAL VITAMINS W/ FOLIC ACID TABLET (FP) PO SCH (11:08)
[2019-01-10] MEDS: METHOCARBAMOL 500 MG TABLET PO PRN (11:08)
--- NOTE | 2019-01-10 13:00 | PN ---
S CIWA - CIWA Score Nausea/Vomitin-Mild Nausea/No Vomiting Muscle Tremors: 4-Moderate,w/Arms Extend Anxiety: 4-Mod. Anxious/Guarded Agitation: 4-Moderately Restless Paroxysmal Sweats: 4-Forehead w/Sweat Beads Orientation: 0-Oriented Tacttile Disturbances: 0-None Auditory Disturbances: 0-None Visual Disturbances: 0-None Headache: 0-None Present CIWA-Ar Total Score: 17 [facility] Progress Note (SOAP) Subjective: sweats restless shakes anxiety body aches nausea Objective: 01/10/19 12:59 Vital Signs Temperature 98.8 F 01/10/19 09:19 Pulse Rate 79 01/10/19 09:19 Respiratory Rate 20 01/10/19 09:19 Blood Pressure 122/61 01/10/19 09:19 O2 Sat by Pulse Oximetry (%) labs pending aaox3 ambulating no acute distress Assessment: 01/10/19 13:00 withdrawal sx Plan: continue detox increase fluids
[2019-01-10] MEDS: THIAMINE HCL 100 MG TABLET (FP) PO SCH (22:22)
[2019-01-10] MEDS: MELATONIN 5 MG TABLETS PO PRN (22:22)
[2019-01-11] MEDS: chlordiazePOXIDE HCL 25 MG CAPSULE PO SCH (05:37)
[2019-01-11] MEDS: METHOCARBAMOL 500 MG TABLET PO PRN (05:39)
--- NOTE | 2019-01-11 08:39 | EKG ---
Test Reason : Blood Pressure : / mmHG Vent. Rate : 071 BPM Atrial Rate : 071 BPM P-R Int : 176 ms QRS Dur : 088 ms QT Int : 410 ms P-R-T Axes : 055 037 050 degrees QTc Int : 445 ms SINUS RHYTHM WITH PREMATURE ATRIAL COMPLEXES OTHERWISE NORMAL ECG WHEN COMPARED WITH ECG OF 28-DEC-2017 17:30, PREMATURE ATRIAL COMPLEXES ARE NOW PRESENT Confirmed by Audrey Gaxiola ([id number]) on 01/11/2019 8:38:54 AM Referred By: LUZ RODRIGUEZ Confirmed By:Audrey Gaxiola
[2019-01-11] MEDS: PRENATAL VITAMINS W/ FOLIC ACID TABLET (FP) PO SCH (10:15)
[2019-01-11] MEDS: chlordiazePOXIDE HCL 25 MG CAPSULE PO PRN ×2 (10:18→18:54)
[2019-01-11 10:24] LABS: ALBUMIN 3.4 g/dl (3.4-5.0); BILIRUBIN,TOTAL 2.4 mg/dL (0.2-1); BLOOD UREA NITROGEN 10.8 mg/dL (7-18); CALCIUM 8.3 mg/dL (8.5-10.1); CREATININE 0.9 mg/dL (0.55-1.3); POTASSIUM 3.4 mmol/L (3.5-5.1); TOT PROT 6.1 g/dl (6.4-8.2)
[2019-01-11 10:26] LABS: HEMATOCRIT 40.8 % (35.4-49); HEMOGLOBIN 14.1 GM/dL (11.7-16.9); MCH 31.4 pg (25.7-33.7); MCHC 34.5 g/dl (32.0-35.9); MEAN CELL VOLUME 90.9 fl (80-96); MEAN PLT VOLUME 7.5 fl (7.5-11.1); PLATELET COUNT 182 K/MM3 (134-434); RBC 4.49 M/mm3 (4.00-5.60); RDW 14.6 % (11.9-15.9); WHITE BLOOD COUNT 3.9 K/mm3 (4.0-10.0)
--- NOTE | 2019-01-11 10:33 | CONSULT ---
[facility] Psychiatric Consult - Data Date of interview: 01/11/19 Admission source: [facility] Identifying data: Patient is 44 year old [place] male, father of two, domiciled, and currently employed (postal service, [employer]). This is one of multiple admissions for patient. Patient admitted to for alcohol dependence. Substance Abuse History: - Smoking Cessation. Smoking history: Never smoked. Have you smoked in the past 12 months: No. Hx Chewing Tobacco Use: No. - Substances abused. Alcohol. Substance route: Oral. Frequency: Daily. Amount used: 12 (12oz beers). Age of first use: 17. Date of last use: 12/22/18 Medical History: Significant for hypertension and PPD+ Psychiatric History: Patient denies history pscyhiatric hospitalizations, outpatient care and suicide attempt. At present patient reports difficulty sleeping. Physical/Sexual Abuse/Trauma History: denies. Mental Status Exam - Mental Status Exam Alert and Oriented to: Time, Place, Person Cognitive Function: Good Patient Appearance: Well Groomed Mood: Euthymic Affect: Mood Congruent Patient Behavior: Cooperative Speech Pattern: Appropriate Voice Loudness: Normal Thought Process: Goal Oriented Thought Disorder: Not Present Hallucinations: Denies Suicidal Ideation: Denies Homicidal Ideation: Denies Insight/Judgement: Poor Sleep: Poorly Appetite: Fair Muscle strength/Tone: Normal Gait/Station: Normal Psychiatric Findings - Problem List ([place] 1, 2,3) (1) Alcohol use disorder Current Visit: Yes Status: Acute (2) Alcohol-induced sleep disorder Current Visit: Yes Status: Acute (3) Alcohol dependence with uncomplicated withdrawal Current Visit: Yes Status: Acute - Initial Treatment Plan Initial Treatment Plan: Psychoeducation provided. Detoxification in progress. Will order Trazodone 50mg HS. Benefits and side effects discussed. Verbal consent given.
--- NOTE | 2019-01-11 14:45 | PN ---
[facility] CIWA - CIWA Score Nausea/Vomitin-Mild Nausea/No Vomiting Muscle Tremors: 3 Anxiety: 4-Mod. Anxious/Guarded Agitation: 4-Moderately Restless Paroxysmal Sweats: 3 Orientation: 0-Oriented Tacttile Disturbances: 0-None Auditory Disturbances: 0-None Visual Disturbances: 0-None Headache: 0-None Present CIWA-Ar Total Score: 15 [facility] Progress Note (SOAP) Subjective: Very anxious, interrupted sleep Objective: 01/11/19 14:41 Last Vital Signs Temp Pulse Resp BP Pulse Ox 98.5 F 82 18 152/82 01/11/19 13:19 01/11/19 13:19 01/11/19 13:19 01/11/19 13:19 Elevated b/p noted: denies htn Laboratory Tests 01/11/19 01/11/19 01/11/19 07:15 07:15 07:15 WBC 3.9 L RBC 4.49 Hgb 14.1 Hct 40.8 MCV 90.9 MCH 31.4 MCHC 34.5 RDW 14.6 Plt Count 182 MPV 7.5 D Sodium 139 Potassium 3.4 L Chloride 102 Carbon Dioxide 28 Anion Gap 8 BUN 10.8 Creatinine 0.9 Est GFR (CKD-EPI)AfAm 119.97 Est GFR (CKD-EPI)NonAf 103.51 Random Glucose 99 Calcium 8.3 L Total Bilirubin 2.4 H AST 48 H ALT 45 Alkaline Phosphatase 93 Total Protein 6.1 L Albumin 3.4 RPR Titer Nonreactive Labs reviewed: total bilirubin 2.4, K 3.4 Assessment: 01/11/19 14:43 Withdrawal sxs Noted with elevated b/p, mild hypokalemia and elevated total bilirubin Plan: Continue detox Encouraged PO water intake Elevated b/p: start clonidine prn Mild hypokalemia: K Dur 40 Meq PO x 1 dose, repeat serum K level Elevated total bilirubin: most likely r/t withdrawal, repeat total serum bilirubin level
[2019-01-11] MEDS ORDERED: POTASSIUM CHLORIDE TABS 20 MEQ TABLET.ER (FP) PO ONE (14:56)
[2019-01-11] MEDS: cloNIDine HCL 0.1 MG TABLET PO PRN (18:54)
[2019-01-11] MEDS: THIAMINE HCL 100 MG TABLET (FP) PO SCH (21:44)
[2019-01-11] MEDS ORDERED: traZODone HCL 50 MG TABLET (FP) PO SCH (22:00)
[2019-01-12] MEDS: chlordiazePOXIDE HCL 25 MG CAPSULE PO SCH ×4 (06:01→22:27)
[2019-01-12] MEDS: cloNIDine HCL 0.1 MG TABLET PO PRN (09:27)
[2019-01-12] MEDS: PRENATAL VITAMINS W/ FOLIC ACID TABLET (FP) PO SCH (10:08)
[2019-01-12 10:15] LABS: BILIRUBIN,TOTAL 1.5 mg/dL (0.2-1); POTASSIUM 3.5 mmol/L (3.5-5.1)
--- NOTE | 2019-01-12 11:17 | PN ---
S Progress Note Note: Patient reports sleeping poorly despite taking Trazadone 50 mg/hs. Requests to increase Trazadone dosage. Trazadone dose is increased to 100 mg/hs
--- NOTE | 2019-01-12 13:17 | PN ---
S CIWA - CIWA Score Nausea/Vomitin-No Nausea/No Vomiting Muscle Tremors: 3 Anxiety: 2 Agitation: 3 Paroxysmal Sweats: 1-Minimal Palms Moist Orientation: 0-Oriented Tacttile Disturbances: 0-None Auditory Disturbances: 0-None Visual Disturbances: 0-None Headache: 0-None Present CIWA-Ar Total Score: 9 BHS Progress Note (SOAP) Subjective: restless anxiety i need my cymbalta Objective: 01/12/19 13:07 Vital Signs Temperature 97.7 F 01/12/19 13:05 Pulse Rate 64 01/12/19 13:05 Respiratory Rate 18 01/12/19 13:05 Blood Pressure 134/79 01/12/19 13:05 O2 Sat by Pulse Oximetry (%) Laboratory Tests 01/11/19 01/11/19 01/11/19 07:15 07:15 07:15 WBC 3.9 L RBC 4.49 Hgb 14.1 Hct 40.8 MCV 90.9 MCH 31.4 MCHC 34.5 RDW 14.6 Plt Count 182 MPV 7.5 D Sodium 139 Potassium 3.4 L Chloride 102 Carbon Dioxide 28 Anion Gap 8 BUN 10.8 Creatinine 0.9 Est GFR (CKD-EPI)AfAm 119.97 Est GFR (CKD-EPI)NonAf 103.51 Random Glucose 99 Calcium 8.3 L Total Bilirubin 2.4 H AST 48 H ALT 45 Alkaline Phosphatase 93 Total Protein 6.1 L Albumin 3.4 RPR Titer Nonreactive 01/12/19 08:00 WBC RBC Hgb Hct MCV MCH MCHC RDW Plt Count MPV Sodium Potassium 3.5 Chloride Carbon Dioxide Anion Gap BUN Creatinine Est GFR (CKD-EPI)AfAm Est GFR (CKD-EPI)NonAf Random Glucose Calcium Total Bilirubin 1.5 H AST ALT Alkaline Phosphatase Total Protein Albumin RPR Titer repeated labs show improvement aaox3 ambulating no acute distress Assessment: 01/12/19 13:17 withdrawals Plan: continue detox increase fluids psych ordered
[2019-01-12] MEDS: hydrOXYzine PAMOATE 25 MG CAPSULE (FP) PO PRN (17:17)
[2019-01-12] MEDS: traZODone HCL 100 MG TABLET (FP) PO SCH (22:27)
[2019-01-12] MEDS: THIAMINE HCL 100 MG TABLET (FP) PO SCH (22:28)
[2019-01-13] MEDS ORDERED: chlordiazePOXIDE HCL 10 MG CAPSULE PO PRN
[2019-01-13] MEDS: chlordiazePOXIDE HCL 10 MG CAPSULE PO SCH ×4 (05:55→22:05)
[2019-01-13] MEDS: hydrOXYzine PAMOATE 25 MG CAPSULE (FP) PO PRN ×2 (05:57→17:42)
[2019-01-13] MEDS: METHOCARBAMOL 500 MG TABLET PO PRN ×2 (10:16→22:06)
[2019-01-13] MEDS: PRENATAL VITAMINS W/ FOLIC ACID TABLET (FP) PO SCH (10:16)
--- NOTE | 2019-01-13 10:48 | PN ---
S CIWA - CIWA Score Nausea/Vomitin-No Nausea/No Vomiting Muscle Tremors: 2 Anxiety: 1-Mildly Anxious Agitation: 1-Slight > Activity Paroxysmal Sweats: 1-Minimal Palms Moist Orientation: 0-Oriented Tacttile Disturbances: 0-None Auditory Disturbances: 0-None Visual Disturbances: 0-None Headache: 0-None Present CIWA-Ar Total Score: 5 BHS Progress Note (SOAP) Subjective: sweats shakes Objective: 01/13/19 10:47 Vital Signs Temperature 97 F L 01/13/19 09:21 Pulse Rate 73 01/13/19 09:21 Respiratory Rate 18 01/13/19 09:21 Blood Pressure 107/62 01/13/19 09:21 O2 Sat by Pulse Oximetry (%) aaox3 ambulating no acute distress Assessment: 01/13/19 10:48 withdrawals Plan: continue detox
[2019-01-13] MEDS: IBUPROFEN 400 MG TABLET (FP) PO PRN (17:42)
[2019-01-13] MEDS: traZODone HCL 100 MG TABLET (FP) PO SCH (22:05)
[2019-01-13] MEDS: THIAMINE HCL 100 MG TABLET (FP) PO SCH (22:05)
[2019-01-14] MEDS: chlordiazePOXIDE HCL 10 MG CAPSULE PO SCH ×2 (06:34→17:09)
[2019-01-14] MEDS: IBUPROFEN 400 MG TABLET (FP) PO PRN (06:37)
[2019-01-14] MEDS: PRENATAL VITAMINS W/ FOLIC ACID TABLET (FP) PO SCH (09:12)
[2019-01-14] MEDS: METHOCARBAMOL 500 MG TABLET PO PRN ×2 (09:13→17:12)
--- NOTE | 2019-01-14 11:18 | PN ---
[facility] CIWA - CIWA Score Nausea/Vomitin-No Nausea/No Vomiting Muscle Tremors: 1-None Visible, but [place] Anxiety: 1-Mildly Anxious Agitation: 0-Normal Activity Paroxysmal Sweats: No Perspiration Orientation: 0-Oriented Tacttile Disturbances: 0-None Auditory Disturbances: 0-None Visual Disturbances: 0-None Headache: 0-None Present CIWA-Ar Total Score: 2 BHS Progress Note (SOAP) Subjective: anxiety Objective: 01/14/19 11:23 Vital Signs Temperature 97.9 F 01/14/19 10:01 Pulse Rate 72 01/14/19 10:01 Respiratory Rate 18 01/14/19 10:01 Blood Pressure 129/76 01/14/19 10:01 O2 Sat by Pulse Oximetry (%) aaox3 ambulating no acute distress Assessment: 01/14/19 11:23 mild withdrawal sx Plan: continue detox d/c in am
[2019-01-14] MEDS: hydrOXYzine PAMOATE 25 MG CAPSULE (FP) PO PRN (17:12)
[2019-01-14] MEDS: traZODone HCL 100 MG TABLET (FP) PO SCH (22:02)
[2019-01-14] MEDS: THIAMINE HCL 100 MG TABLET (FP) PO SCH (22:03)
[2019-01-14] MEDS: MELATONIN 5 MG TABLETS PO PRN (22:03)
[2019-01-15] MEDS ORDERED: chlordiazePOXIDE HCL 10 MG CAPSULE PO ONE (05:00)
[2019-01-15 06:50] VITALS: BP 106/55; PULSE 48; TEMP 97.7
[2019-01-15] MEDS: METHOCARBAMOL 500 MG TABLET PO PRN (07:37)
[2019-01-15] MEDS: IBUPROFEN 400 MG TABLET (FP) PO PRN (07:38)
--- NOTE | 2019-01-15 08:34 | DS ---
[facility] Detox Discharge Summary Admission Date: 01/10/19 Discharge Date: 01/15/19 - History Present History: Alcohol Dependence, Opioid Dependence - Physical Exam Results Vital Signs: Vital Signs Temperature 97.7 F 01/15/19 06:49 Pulse Rate 48 L 01/15/19 06:49 Respiratory Rate 18 01/15/19 06:49 Blood Pressure 106/55 L 01/15/19 06:49 O2 Sat by Pulse Oximetry (%) Pertinent Admission Physical Exam Findings: pt arrived in withdrawals Vital Signs Temperature 97.7 F 01/15/19 06:49 Pulse Rate 48 L 01/15/19 06:49 Respiratory Rate 18 01/15/19 06:49 Blood Pressure 106/55 L 01/15/19 06:49 O2 Sat by Pulse Oximetry (%) Laboratory Tests 01/11/19 01/11/19 01/11/19 07:15 07:15 07:15 WBC 3.9 L RBC 4.49 Hgb 14.1 Hct 40.8 MCV 90.9 MCH 31.4 MCHC 34.5 RDW 14.6 Plt Count 182 MPV 7.5 D Sodium 139 Potassium 3.4 L Chloride 102 Carbon Dioxide 28 Anion Gap 8 BUN 10.8 Creatinine 0.9 Est GFR (CKD-EPI)AfAm 119.97 Est GFR (CKD-EPI)NonAf 103.51 Random Glucose 99 Calcium 8.3 L Total Bilirubin 2.4 H AST 48 H ALT 45 Alkaline Phosphatase 93 Total Protein 6.1 L Albumin 3.4 RPR Titer Nonreactive 01/12/19 08:00 WBC RBC Hgb Hct MCV MCH MCHC RDW Plt Count MPV Sodium Potassium 3.5 Chloride Carbon Dioxide Anion Gap BUN Creatinine Est GFR (CKD-EPI)AfAm Est GFR (CKD-EPI)NonAf Random Glucose Calcium Total Bilirubin 1.5 H AST ALT Alkaline Phosphatase Total Protein Albumin RPR Titer today pt is aaox3 no acute distress no s/s of withdrawals - Treatment Hospital Course: Detox Protocol Followed, Detoxed Safely, Responded well, Discharged Condition Good, Rehab Referral Accepted - Medication Discharge Medications: Ambulatory Orders Zolpidem Tartrate [Ambien] 10 mg PO HS 07/26/17 traZODone HCL [Trazodone HCl] 100 mg PO HS #30 tablet 07/31/17 - Diagnosis (1) Alcohol dependence with uncomplicated withdrawal Current Visit: Yes Status: Chronic (2) Alcohol use disorder Current Visit: Yes Status: Acute (3) Alcohol-induced sleep disorder Current Visit: Yes Status: Acute (4) Opioid dependence with withdrawal Current Visit: Yes Status: Chronic (5) Anxiety Current Visit: Yes Status: Chronic (6) Depression Current Visit: Yes Status: Chronic Qualifiers: Depression Type: unspecified Qualified Code(s): F32.9 - Major depressive disorder, single episode, unspecified (7) Hypertension Current Visit: Yes Status: Chronic Qualifiers: Hypertension type: essential hypertension Qualified Code(s): I10 - Essential (primary) hypertension (8) Alcohol-induced mood disorder Current Visit: No Status: Acute (9) Hypokalemia Current Visit: No Status: Acute (10) Insomnia Current Visit: No Status: Acute Qualifiers: Insomnia type: unspecified Qualified Code(s): G47.00 - Insomnia, unspecified (11) Anxiety and depression Current Visit: No Status: Chronic (12) PPD positive Current Visit: No Status: Chronic - AMA Did Patient Leave Against Medical Advice: No
== END 2019-01-15 09:16 | disposition home or self-care (01) | DRG 897 ==
LOC: YASAS 23:26 → Y6N 01-10 00:52
PROVIDERS: ADMIT Allergy & Immunology; ATTEND Allergy & Immunology
PROC: HZ2ZZZZ Detoxification Services for Substance Abuse Treatment (ICD-10-PCS; principal; 2019-01-10)
DX: F10.230 Alcohol dependence with withdrawal, uncomplicated (principal); F11.23 Opioid dependence with withdrawal; F10.282 Alcohol dependence with alcohol-induced sleep disorder; F10.24 Alcohol dependence with alcohol-induced mood disorder; F41.9 Anxiety disorder, unspecified; F32.9 Major depressive disorder, single episode, unspecified; E80.6 Other disorders of bilirubin metabolism; E87.6 Hypokalemia; G47.00 Insomnia, unspecified; R03.0 Elevated blood-pressure reading, without diagnosis of hypertension; R76.11 Nonspecific reaction to tuberculin skin test without active tuberculosis
CPT/HCPCS: 36415; 71046-TC-FY; 80053; 82247; 84132; 85027; 86593; 93005; 93010; J0735